=== PATIENT | male | born 1975 | race Caucasian/White ===

== ENCOUNTER 2017-03-09 05:52 | Inpatient (IN) | payer OTHER ==
[2017-03-09] VITALS (9 sets, daily range): BP systolic 90–132; BP diastolic 44–83
[~2017-03-09] VITALS: Ht 190.5 cm; Wt 99.8 kg
--- NOTE | ~2017-03-09 | CON ---
[place], [place] REPORT OF CONSULTATION NAME: WILLIAN PADILLA UNIT #: [id number] ROOM: 502 DOCTOR: ESTEFANY ZACARIAS PRIYA BIRTHDATE: [birth year] DOS: 03/09/2017 HISTORY OF PRESENT ILLNESS: This is a 41-year-old male with past medical history of diabetes mellitus with peripheral neuropathy, with history of bilateral hallux amputations, who presents to the Emergency Department with purulent drainage and cellulitis noted to the right foot. The patient states he developed an ulceration of the fourth digit last month. 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 He states that he was suppose to follow up with him today, but noticed purulent drainage come out of the medial aspect of his right foot. He states his fourth digit has been increasing in size over the course of the month. He denies being on any antibiotics at this time. He has had bilateral hallux amputations done about 5 years ago. He denies nausea, vomiting, fever or chills. He denies pain to his foot. PAST MEDICAL HISTORY: Diabetes mellitus with peripheral neuropathy, history of bilateral hallux amputations. PAST SURGICAL HISTORY: Multiple foot surgeries. SOCIAL HISTORY: Denies illicit drug use. Denies alcohol or tobacco use. MEDICATIONS: Please see MAR for current list of medications. PHYSICAL EXAMINATION: VITAL SIGNS: Temperature 98.6, pulse 102, respiratory rate 18, blood pressure 108/71. LABORATORY DATA: White count 17.1, hemoglobin 10.4, hematocrit 31.4, platelets 252. LOWER EXTREMITY PHYSICAL EXAMINATION: VASCULAR: DP and PT pulses are palpable bilateral. CFT is less than 3 seconds to remaining digits bilateral. Skin temperature is warm to warm from tibial tuberosity to digits bilateral. No hair present on digits bilateral. NEUROLOGIC: Protective sensation is diminished to digits bilateral. [place] is diminished to digits bilateral. Normal muscle tone and mass noted to bilateral lower extremities. MUSCULOSKELETAL: Bilateral hallux amputations noted. Equinus deformity noted to bilateral lower extremities. Hammertoe contractures noted to digits 2 through 5 bilateral. DERMATOLOGIC: There are multiple ulcerations noted to the right foot. There are two ulcerations on the mediolateral aspect of the fourth digits that are connected to with a Q-tip. There is about 10 mL of purulent drainage with malodor noted from the fourth digit and the fourth digit has a bulbous appearance, consistent with acute osteomyelitis, increased calor, erythema, edema noted to the right foot and it is ascending up to the mid tibia. There is also full thickness ulceration that probes to bone to the medial aspect of the right foot. There is about 10 mL of purulent drainage expressed upon compression with malodor. There is fibrotic tissue noted from the site. There is tracking noted medially across the forefoot as well from the medial [place], [place] REPORT OF CONSULTATION NAME: WILLIAN PADILLA UNIT #: [id number] ROOM: [facility] DOCTOR: ESTEFANY ZACARIAS PRIYA BIRTHDATE: [birth year] ulceration. ASSESSMENT AND PLAN: 1. Gas gangrene to the right foot. 2. Acute osteomyelitis with deep space abscess, right foot. 3. Right lower extremity cellulitis. 4. Diabetes mellitus with peripheral neuropathy. PLAN: 1. The patient is seen and examined. 2. Wound cultures obtained. 3. Antibiotics per Infectious Disease. 4. Nonweightbearing to the right lower extremity. 5. The patient to be n.p.o. at this time. 6. Plan for surgical intervention at 4:30 with incision and drainage of deep space abscess, transmetatarsal amputation and gastrocnemius recession. 7. We will continue to follow. 8. Discussed with Dr. Ingram, who agrees with the above assessment and plan. LIDIA ZACARIAS DPM CM:CONSTR:REPORT OF CONSULTATION 1025 03/09/17 1110 interface
--- NOTE | ~2017-03-09 | PR ---
[place], [place] PROGRESS NOTE NAME: WILLIAN PADILLA UNIT #: [id number] ROOM: 502 DOCTOR: ESTEFANY ZACARIAS PRIYA BIRTHDATE: [birth year] DOS: 03/16/2017 SUBJECTIVE: The patient is seen and examined at bedside. Denies nausea, vomiting, fever or chills. Denies any calf pain or pain to the right foot. OBJECTIVE: VITAL SIGNS: Temperature 99.7, pulse 82, respirations 16, blood pressure 121/76. LABORATORY DATA: White count 11.5, hemoglobin 6.3, hematocrit 20.5, platelets 398. LOWER EXTREMITIES: Dressing clean, dry and intact to the right lower extremity. There is no drainage noted to the bandages. The patient denies any calf pain upon compression. IMPRESSION: 1. Gangrene to the right foot, status post delayed primary closure of transmetatarsal amputation with ____ recession. Date of surgery, 03/16/2017, POD #1. 2. Diabetes mellitus, uncontrolled. 3. Diabetes mellitus with peripheral neuropathy. PLAN: 1. The patient is seen and examined. 2. Keep dressing clean, dry and intact. 3. Nonweightbearing to right lower extremity. 4. Recommend physical therapy evaluation. 5. Appreciate social work recs. 6. Appreciate ID recs. 7. Bone cultures and bone were sent to pathology for further evaluation. 8. We will continue to follow. 9. Okay to discharge from podiatry standpoint once medically stable.. [place], [place] PROGRESS NOTE NAME: WILLIAN PADILLA UNIT #: [id number] ROOM: [facility] DOCTOR: ESTEFANY ZACARIAS PRIYA BIRTHDATE: [birth year] LIDIA ZACARIAS DPM CM:PNTRANS [phone] LIDIA ZACARIAS DPM 03/17/172141 interface
--- NOTE | ~2017-03-09 | O ---
[place], [place] OPERATIVE NOTE NAME: WILLIAN PADILLA UNIT #: [id number] ROOM: 502 DOCTOR: GABRIELE RUBY DPM BIRTHDATE: [birth year] DOS: 03/16/2017 SURGEON: Gabriele Ruby DPM ASSISTANTS: 1. Dr. Ivon Zepeda. 2. Favian Cohen, PGY-1. PREOPERATIVE DIAGNOSES: 1. Osteomyelitis of metatarsals 1 through 5, right. 2. Open wound at the transmetatarsal site, right foot. 3. Open wound dorsomedially, measuring 2.5 x 0.5, right foot. 4. Open wound dorsolateral, measuring 1.3 x 0.5, right foot. 5. Plantar open wound that measures 4 cm x 2 cm, right foot. PROCEDURE IN DETAIL: The patient again was seen in preoperative holding area, placed in supine ____, the patient agreed. Appropriate landmarks were performed and he consented to the surgery. He was brought into the ____ table where anesthesia achieved. Once the anesthesia achieved, his right foot and leg were prepped and draped in the usual sterile fashion. At this time, appropriate timeout was performed ____ agreed ____ confirmed. PROCEDURE #1: Bone debridement: Bone debridement of the right foot, metatarsals 1 through 5. At this time using power saw, bone was resected from metatarsals 1 through 5 and at this point in time, bone was sent for aerobic, anaerobic, fungal, acid fast as well as biopsy of metatarsals 1 through 5. This was resected and a significant amount of irrigation was used for irrigation at this point in time. PROCEDURE #2: Delayed primary complex closure, dorsomedial wound: Next, attention was directed to the dorsomedial aspect of the foot where a 2.5 x 0.5 wound was measured. A full thickness sharp excisional debridement was performed. There was no ____ drainage. The wound was excised ____ all fibrous tissues were excised and removed in total. At this time, using 2-0 nylon ____ the tissues were mobilized to the midline ____ complex closure type technique using 2-0 nylon closing this primarily. PROCEDURE #3: Dorsolateral wound delayed primary closure: Attention was directed to the dorsolateral aspect of the wound that measured 1.3 x 0.5. At this time, wide excision full thickness soft tissue was taken from this site. There is no clinical sign of infection or drainage at this time. Using 2-0 nylon and 0 Prolene, complex closure was closed mobilizing the medial and lateral tissues to the midline and closing this primarily on the dorsolateral aspect of the foot. PROCEDURE #4: Attention to ____ foot: A wide excision of the plantar wound measuring 4 x 2 cm performed. All fibrous necrotic tissue was excised, removed in total. Plantar fascia was also removed in this area from the foot. At this time, after irrigation, 0 nylon and 2-0 nylon was used, undermining and mobilizing the tissue midline, completing a complete complex closure. [place], [place] OPERATIVE NOTE NAME: WILLIAN PADILLA UNIT #: [id number] ROOM: [facility] DOCTOR: GABRIELE RUBY DPM BIRTHDATE: [birth year] PROCEDURE #5: Delayed primary complex closure of the plantar wound: This was closed primarily using 2-0 nylon and 0 Prolene. PROCEDURE #6: Delayed complex closure of the transmetatarsal site: At this time, using 0 Vicryl and 2-0 nylon and 0 Prolene combination, the dog ears were repaired and a flap was ____ distally creating a complex closure of the wound primarily. Hemostasis was maintained. Soft tissues were sent for Gram stain, aerobic, anaerobic. fungal, acid fast. Prior to closure, this was irrigated and this complex closure was completed. Surgical wounds were dressed with Betadine-soaked Adaptic, 4 x 4s, Terry ____ fashion. Tolerated the procedure ____ intact. GABRIELE RUBY DPM CM:OPRECORD:OPERATIVE NOTE [id number] GABRIELE RUBY DPM 03/17/17 1631 interface
--- NOTE | ~2017-03-09 | PR ---
[place], [place] PROGRESS NOTE NAME: [id number] UNIT #: [id number] ROOM: 502 DOCTOR: ESTEFANY ZACARIAS PRIYA BIRTHDATE: [birth year] DOS: 03/12/2017 SUBJECTIVE: This is a 41-year-old male who underwent a transmetatarsal amputation and gastrocnemius recession to right lower extremity on 03/09/2017. The patient denies any nausea, vomiting, fever or chills at this time. He denies any calf pain or shortness of breath or chest pain. LABORATORY DATA: White count is 11.7, hemoglobin 7.2, hematocrit 22.4 and platelets 287. Wound cultures from March 09 demonstrate Klebsiella, Staph aureus and enterococcus. OBJECTIVE: VITAL SIGNS: Temperature 99.2, pulse 80, respirations 20, blood pressure 131/74. EXTREMITIES: Right lower extremity has a wound VAC set at 125 mmHg, with about 50 mL of sanguinous drainage. When removing the dressing, there is a plantar incision that was packed. Upon compression and probing on the hemostat, there was about 5 mL of seropurulent drainage noted from the foot. No malodor was noted. Edema present. Calor and erythema have subsided to right lower extremity. Capillary fill time to the stump is less than 5 seconds to the right lower extremity. Decreased sensation noted to the right lower extremity. The patient is able to dorsiflex and plantarflex his ankle joint appropriately. ASSESSMENT: 1. This is a 41-year-old male, status post transmetatarsal amputation with gastrocnemius recession, 03/09/2017. 2. Diabetes with peripheral neuropathy. 3. History of osteomyelitis. 4. Uncontrolled diabetic. PLAN: 1. The patient is seen and examined. 2. Dress the plantar wound with Betadine, rewrap the foot with a posterior splint. 3. Nonweightbearing to the right lower extremity. 4. At this time, white count is trending down appropriately. He is currently on vancomycin, cefepime and clindamycin. We ordered another MRI to rule out any further fluid collections in the right lower extremity. If MRI is positive, he will need to go back to surgery for another I and D. If not, we will plan for delayed primary closure later in next week. 5. Wound culture obtained. 6. We will continue to follow. [place], [place] PROGRESS NOTE NAME: WILLIAN PADILLA UNIT #: [id number] ROOM: [facility] DOCTOR: ESTEFANY ZACARIAS PRIYA BIRTHDATE: [birth year] LIDIA ZACARIAS DPM CM:PNTRANS [phone] LIDIA ZACARIAS DPM 03/12/171641 interface
--- NOTE | ~2017-03-09 | PR ---
[place], [place] PROGRESS NOTE NAME: WILLIAN PADILLA UNIT #: [id number] ROOM: 502 DOCTOR: AMANUEL DURAND,SEPTEMBER BIRTHDATE: [birth year] DOS: 03/12/2017 SUBJECTIVE: The patient is being followed for right foot abscess, osteomyelitis and cellulitis. He is status post transmetatarsal amputation. His WBCs are down to 11.7, temp max in the last 24 hours has been 99.7. He is alert and oriented. Denies any pain. No nausea, vomiting or diarrhea. No fevers or chills. No cough or shortness of breath. PHYSICAL EXAMINATION: VITAL SIGNS: Show temp 99.2, pulse 80, respirations 20, BP 131/74. LABORATORY DATA: Show WBCs 11.7, platelets 287. BUN 11, creatinine 0.93. His blood cultures from the have Gram-positive cocci in chains. Repeat blood cultures from the remain sterile. Wound cultures from the foot are growing a pansensitive Klebsiella, MRSA and Enterococcus faecalis, sensitive to ampicillin, currently on vancomycin and cefepime. Clindamycin was added yesterday for anaerobic coverage. CURRENT MEDICATIONS: Include OptiMARK, Librium, Cleocin, vancomycin, vitamin D, Lopid, Levemir, Tylenol, cefepime, Lovenox, Lipitor, Restoril, Zofran, Dulcolax, [place] and Tylenol. PHYSICAL EXAMINATION: Alert and oriented 41-year-old male, in no acute distress. HEAD, EYES, EARS, NOSE AND THROAT: Normocephalic, no thrush. LUNGS: Clear to auscultation bilaterally. Respirations even and unlabored. HEART: Regular rhythm. No murmur appreciated. ABDOMEN: Soft, nontender. EXTREMITIES: Right lower extremity dressed from just below the knee down. He does have a VAC in place, it was changed to earlier today. SKIN: Otherwise, warm and dry and free of rashes. ASSESSMENT: Right foot osteomyelitis, abscess and cellulitis, status post drainage metatarsal amputation also with Gram-positive cocci bacteremia, likely Enterococcus. PLAN: At this point, we can antibiotics to Unasyn and vancomycin, follow up on repeat blood cultures. Case discussed with Dr. Marissa Cutrona. If blood cultures remain sterile, he is likely to need a PICC line placed for long-term IV antibiotics. ALICE VITAL CNP [place], [place] PROGRESS NOTE NAME: WILLIAN PADILLA UNIT #: [id number] ROOM: [facility] DOCTOR: AMANUEL DURANDSEPTEMBER BIRTHDATE: [birth year] MARISSA VIGIL MD CM:PNTRANS [id number] ALICE VITAL CNP 03/15/17 0614 interface
--- NOTE | ~2017-03-09 | PR ---
[place], [place] PROGRESS NOTE NAME: WILLIAN PADILLA UNIT #: [id number] ROOM: 502 DOCTOR: DANNIELLE VARGAS DPM BIRTHDATE: [birth year] DOS: 03/15/2017 SUBJECTIVE: The patient was seen for followup of right foot transmet amputation. The patient is set for further debridement tomorrow by Dr. Zepeda tomorrow at 11:30. OBJECTIVE: The patient's wound VAC, posterior splint and dressing are intact with no breakthrough bleeding. Results of the venous Doppler were negative for DVT. Right ankle MRI revealed evidence of progression of infectious tenosynovitis extending along the medial flexor tendons to the master knot of Peter with proximal tenosynovitis, ulceration plantar margin of the mid foot with extensive cellulitis and diffuse myositis within the plantar musculature and inflammatory changes, no evidence of acute osteomyelitis. ASSESSMENT: Infection post-transmetatarsal amputation. PLAN: The patient's local wound care will continue. The patient has orders in the system for surgical intervention be performed, further debridement by Dr. Zepeda tomorrow. The patient had no further questions. Discussed the surgical procedure with the patient at this visit and he understands the treatment course. Discussed with the patient the importance of compliance and that he is still high risk for limb loss. The patient is set up for surgery tomorrow with Dr. Zepeda and we follow again on . DANNIELLE VARGAS DPM CM:HARRIS [phone] DANNIELLE VARGAS DPM 03/15/17 2336 interface
--- NOTE | ~2017-03-09 | PR ---
[place], [place] PROGRESS NOTE NAME: WILLIAN PADILLA UNIT #: [id number] ROOM: 502 DOCTOR: YARITZA BARRON,MARISSA White BIRTHDATE: [birth year] DOS: 03/16/2017 ADDENDUM I agree with the above plans as described. We will continue the patient's followup and adjust accordingly. MARISSA VIGIL MD CM:PNTRANS [id number] MARISSA VIGIL MD 03/17/17 0751 interface
--- NOTE | ~2017-03-09 | WRIGHTHP ---
[place], [place] PATIENT HISTORY AND PHYSICAL EXAM NAME: WILLIAN PADILLA UNIT #: [id number] ROOM: 502 DOCTOR: GABRIELE RUBY DPM BIRTHDATE: [birth year] DOS: 03/09/2017 INDICATION: The patient is seen for followup of post incision and drainage and debridement of his right lower extremity. He has had a chronic osteomyelitis infection of his right. At this point in time, the patient is set for surgery today on 03/16/2017 for debridement and delayed primary closure of wound. His wound looks pink, healthy granular. No cardinal signs of infection, drainage or odor identified. At this time, the patient is sent for [facility] for resection and more bone debridement and delayed primary closure of multiple wounds of his right lower extremity. With this in mind, a proprioception was performed. He signed consent. All questions were answered before, during and after. He understands the risk of limb loss, etc. The patient consented for surgery and set for surgery this afternoon for as described above. PHYSICAL EXAMINATION: LOWER EXTREMITY VASCULAR: He has palpable pedal pulses. He has good perfusion of his right lower extremity. NEUROLOGIC: He has complete loss of epicritic sensation secondary to diabetic neuropathy. DERMATOLOGICAL: He has an open wound to transmetatarsal amputation site. The wound is pink, healthy granular. There is no cardinal signs of infection, drainage, odor, undermining or tunneling noted in the transmetatarsal amputation site. He has a wound on dorsal, measures 2.5 x 0.5, has no evidence of cardinal signs of infection, drainage, odor, undermining or tunneling. He has a dorsal lateral wound that measures 1.3 x 0.5. It is full thickness in nature as well and does not exhibit any kind of cardinal signs of infection, drainage, undermining tunneling. He has a plantar wound that exhibits no cardinal signs of infection, drainage, undermining tunneling that measures 4 cm x 2 cm and he has a transmetatarsal site that is wide open from the lateral medial aspect of his foot. There was bone exposed the distal portion of the transmetatarsal site, orthopedic post-gangrenous and osteomyelitic changes of his right forefoot and mid foot. [place], [place] PATIENT HISTORY AND PHYSICAL EXAM NAME: WILLIAN PADILLA UNIT #: [id number] ROOM: [facility] DOCTOR: GABRIELE RUBY DPM BIRTHDATE: [birth year] GABRIELE RUBY DPM CM:HISPHYS:PATIENT HISTORY AND PHYSICAL EXAMINATION 1325 1601 GABRIELE RUBY DPM 03/16/17 1600 interface
--- NOTE | ~2017-03-09 | PR ---
[place], [place] PROGRESS NOTE NAME: WILLIAN PADILLA UNIT #: [id number] ROOM: 502 DOCTOR: ESTEFANY ZACARIAS PRIYA BIRTHDATE: [birth year] DOS: 03/13/2017 SUBJECTIVE: The patient was evaluated at bedside. He is status post transmetatarsal amputation with gastrocnemius recession on 03/09/2017. Denies nausea, vomiting, fever or chills. LABORATORY DATA: Blood work has not been completed yet. Microbiology: Current wound culture as the same from yesterday and wound culture from the plantar heel has been obtained and sent to [place] for further evaluation. OBJECTIVE: VITAL SIGNS: Temperature 99.6, pulse rate 86, respiratory rate 20, blood pressure 120/66. EXTREMITIES: Wound VAC set at 125 mmHg. There is about 50 mL of drainage. There is a plantar incision site that measures about 3 cm that tracks down to medial aspect of the right ankle. I suspect there is an abscess collection in that area. We will confirm with MRI. Neurovascular status unchanged from yesterday. ASSESSMENT: 1. Status post transmetatarsal amputation with gastrocnemius recession, right lower extremity. 2. Uncontrolled diabetes. 3. Diabetes with peripheral neuropathy. PLAN: 1. The patient is seen and examined. 2. Nonweightbearing to the right lower extremity. 3. The area was flushed with Betadine and saline solution. There is about 5 mL of seropurulent drainage noted from the medial plantar aspect of the right foot. At this time, MRI of the right ankle has been ordered to evaluate for any fluid collections. I will see if I can get this done stat. The patient will likely need to go to the operating room again for further debridement pending on MRI results. 4. Discussed with the patient importance of compliance to remain nonweightbearing to his lower extremity. 5. Antibiotics per Infectious Disease. 6. We will continue to follow. [place], [place] PROGRESS NOTE NAME: WILLIAN PADILLA UNIT #: [id number] ROOM: 502 DOCTOR: ESTEFANY ZACARIAS PRIYA BIRTHDATE: [birth year] LIDIA ZACARIAS DPM CM:PNTRANS 0640 [id number] LIDIA ZACARIAS DPM 03/13/17 2313 interface
--- NOTE | ~2017-03-09 | PR ---
[place], [place] PROGRESS NOTE [id number] UNIT #: [id number] ROOM: 502 DOCTOR: AMANUEL DURANDSEPTEMBER BIRTHDATE: [birth year] DOS: 03/16/2017 SUBJECTIVE: A 41-year-old male who is being followed for right diabetic foot infection with osteomyelitis and abscess, status post debridement transmetatarsal amputation. He is going back to surgery today for possible further I and D of the ankle and delayed primary closure of the foot. It is my understanding per Podiatry. He is alert and oriented, tolerating the antibiotics. Denies fevers, chills, nausea, vomiting or diarrhea. No rash or itch, no cough or shortness of breath. VITAL SIGNS: Show temperature 98.0, pulse 74, respirations 20, BP 142/80. LABORATORY DATA: His admitting blood cultures have had gram-positive cocci in chains that could not be identified due to poor growth, though I would suspect there were Enterococcus. His operative cultures have grown Pseudomonas, Klebsiella, MRSA and Enterococcus that was sensitive to ampicillin and vancomycin. He is currently on Zosyn and vancomycin. WBC is 9.2, platelets 394. BUN 15, creatinine 1.04. Pathology did confirm osteomyelitis. CURRENT MEDICATIONS: Include morphine, Reglan, Demerol, Zosyn, vancomycin, vitamin D, Lopid, Levemir, Tylenol, Lovenox, Lipitor, Zofran, milk of magnesia. PHYSICAL EXAMINATION: GENERAL: A 41-year-old male in no acute distress. HEAD, EYES, EARS, NOSE AND THROAT: Normocephalic. No thrush. LUNGS: Clear to auscultation bilaterally. Respirations even and unlabored. HEART: Regular rhythm. No murmur appreciated. ABDOMEN: Soft, nontender. EXTREMITIES: No edema. Right lower extremity is wrapped to the knee with vacuum placed. SKIN: Warm, dry, free of rashes. PICC in place. Dressing dry and intact. No signs of phlebitis. ASSESSMENT: Right diabetic foot infection with abscess and osteomyelitis, status post debridement and transmetatarsal amputation. PLAN: Further surgery today with possible delayed primarily closure and possible further debridement of the ankle. He is to continue the vancomycin and Zosyn. I would anticipate most likely 4-6 weeks of IV antibiotics given his wound care and antibiotics in LTAC may be good option for him, which I have discussed with the patient. Case discussed with Dr. Marissa Vigil. ALICE VITAL CNP [place], [place] PROGRESS NOTE NAME: WILLIAN PADILLA UNIT #: [id number] ROOM: 502 DOCTOR: AMANUEL DURAND BIRTHDATE: [birth year] MARISSA VIGIL MD CM:PNTRANS [id number] SEPT[place]BER AMANUEL DURAND 03/16/17 1013 interface
--- NOTE | ~2017-03-09 | PR ---
[place], [place] PROGRESS NOTE NAME: WILLIAN PADILLA UNIT #: [id number] ROOM: 502 DOCTOR: YARITZA BARRON,MARISSA White BIRTHDATE: [birth year] DOS: 03/12/2017 ADDENDUM TO A PROGRESS NOTE FOR INFECTIOUS DISEASE ON . I agree with the above plans as described. We follow the patient up clinically and adjust accordingly. MARISSA VIGIL MD CM:PNTRANS [phone] MARISSA VIGIL MD 03/15/17 0629 interface
--- NOTE | ~2017-03-09 | PR ---
[place], [place] PROGRESS NOTE NAME: WILLIAN PADILLA UNIT #: [id number] ROOM: 502 DOCTOR: JORJE ZAMORA DPM BIRTHDATE: [birth year] DOS: 03/18/2017 SUBJECTIVE: This patient is seen today for followup. He has a history of an open TMA that was subsequently closed 2 days ago. He states he is feeling well. He really has no complaints at this time. He denies fever, chills, nausea, vomiting or night sweats. OBJECTIVE: There is a bandage with a splint noted on the right lower extremity. There is no strikethrough bleeding or drainage. No pain noted to palpation in the area. His white blood cell count is down to 9.9. The patient is afebrile. ASSESSMENT: Status post surgery, right foot, doing well. PLAN: We will leave the dressing intact. No need to change the bandage at this time as he was primarily closed on Tuesday. No need for the wound VAC. ID is managing antibiotics. Okay to be discharged from Podiatry standpoint. We could follow him up as an outpatient next Tuesday in the office or sooner if there are any issues. If he is still in the hospital over the next few days, we will continue to see him while in-house. JORJE ZAMORA DPM CM:HARRIS [phone] 7 JORJE ZAMORA DPM 03/19/17136 interface
--- NOTE | ~2017-03-09 | PR ---
[place], [place] [facility]GR[id number] UN[facility] #: [id number] ROOM: 502 DOCTOR: AMANUEL DURAND,SEPTEMBER BIRTHDATE: [birth year] DOS: 03/14/2017 SUBJECTIVE: The patient is being followed for a right foot infection with osteomyelitis, abscess and cellulitis, status post debridement. The wound VAC was just applied. I did discuss with the nurse who had discussed with Dr. Wolf. There was no purulence. The foot looked better today. He has positive blood cultures for gram-positive cocci in chains. I contacted microbiology and they stated that due to poor growth, the gram-positive cocci cannot be identified. His blood cultures were polymicrobial including Enterococcus sensitive to ampicillin and vancomycin, MRSA, Klebsiella and Pseudomonas. He is on Zosyn and vancomycin, which he is tolerating without issues. Denies fevers, chills, nausea, vomiting or diarrhea. No rash or itch. No cough or shortness of breath. He has been afebrile. VITAL SIGNS: Show temperature 97.9, pulse 72, respirations 20, BP 100/59. LABORATORY DATA: WBC is 10.2, platelets 364, BUN 14, creatinine 0.92. LFTs within normal limits. CURRENT MEDICATIONS: Include Zosyn, Librium, vancomycin, vitamin D, Lopid, Levemir, Tylenol, Lovenox, Lipitor. PHYSICAL EXAMINATION: GENERAL: A 41-year-old male, in no acute distress. HEAD, EYES, EARS, NOSE AND THROAT: Normocephalic. No thrush. LUNGS: Clear to auscultation bilaterally. Respirations even and unlabored. HEART: Regular rhythm. No murmur appreciated. ABDOMEN: Soft, nondistended. EXTREMITIES: Right lower extremity with bulky dressing from knee down as well as wound VAC. SKIN: Warm, dry, free of rashes. ASSESSMENT: Right diabetic foot infection with osteomyelitis and abscess. Pathology did show acute osteomyelitis. He also has Gram-positive cocci septicemia, which is likely Enterococcus, but could not be identified by microbiology. Repeat blood cultures are sterile. PLAN: At this point, he needs to have a PICC line placed. Foot is improving per Podiatry. He could be set up for discharge. I will probably recommend a moth exterminator and acute care given is complicated wound care per discussion with nursing as well as his vancomycin and Zosyn. This was discussed with the patient. I anticipate he is going to need probably 6 weeks of IV antibiotics. ALICE VITAL CNP [place], [place] PROGRESS NOTE NAME: VALERIE,WILLIAN UNIT #: [id number] ROOM: 502 DOCTOR: AMANUEL DURAND BIRTHDATE: [birth year] MARISSA VIGIL MD CM:PNMITCHEL [phone] SEPTEMBER AMANUEL DURAND 03/15/17 0619 interface
--- NOTE | ~2017-03-09 | PR ---
[place], [place] PROGRESS NOTE NAME: WILLIAN PADILLA UNIT #: [id number] ROOM: 502 DOCTOR: AMANUEL DURANDSEPTEMBER BIRTHDATE: [birth year] DOS: 03/13/2017 SUBJECTIVE: The patient is being followed for a right foot infection with osteomyelitis and abscess. He is status post transmetatarsal amputation. His cultures are polymicrobial, they have grown Klebsiella, pseudomonas, MRSA and Enterococcus faecalis. They also had positive blood cultures with that which they have not finalized yet, but given his gram-positive cocci in chains are likely Enterococcus ____ from the . Repeat blood cultures from the remained sterile. He is alert and oriented, tolerating the antibiotics without issues. Denies any nausea, vomiting or diarrhea. No rash or itch. No cough or shortness of breath. No fevers or shaking chills. His white count has normalized. LABORATORY DATA: Vancomycin trough is 17. WBC is 8.8, platelets 314. BUN 12, creatinine 0.91. LFTs within normal limits. PHYSICAL EXAMINATION: VITAL SIGNS: Temp 98.3, pulse 91, respirations 20 and BP 100/77. GENERAL: Alert and oriented 41-year-old male in no acute distress. HEAD, EYES, EARS, NOSE AND THROAT: Normocephalic, no thrush. LUNGS: Clear to auscultation bilaterally. Respirations even and unlabored. HEART: Regular rhythm. No murmur appreciated. ABDOMEN: Soft, nondistended. EXTREMITIES: Right lower extremity with bulky dressing with VAC in place. ASSESSMENT: Right foot infection with osteomyelitis, abscess and cellulitis, status post transmetatarsal amputation. PLAN: The Unasyn will be changed over to Zosyn to cover the pseudomonas as well. Follow up on the repeat blood cultures. He is supposed to get another MRI to look for any further fluid collections in the foot as per Podiatry. We will continue the vancomycin and we can change the Unasyn to Zosyn. SEPTEMBER LADARIUS VITAL [place], [place] PROGRESS NOTE NAME: WILLIAN PADILLA UNIT #: [id number] ROOM: [facility] DOCTOR: AMANUEL DURAND,SEPTEMBER BIRTHDATE: [birth year] MARISSA VIGIL MD CM:PNTRANS [phone] SEPTEMBER AMANUEL DURAND 03/15/17 0617 interface
--- NOTE | ~2017-03-09 | O ---
[place], [place] OPERATIVE NOTE NAME: WILLIAN PADILLA UNIT #: [id number] ROOM: 502 DOCTOR: ESTEFANY ZEPEDA PRIYA BIRTHDATE: [birth year] DOS: 03/09/2017 SURGEON: Lidia Zepeda DPM PROGRAM ADVISOR: Favian Kumar DPM. PREOPERATIVE DIAGNOSES: 1. Deep space abscess, right foot. 2. Osteomyelitis, right foot. 3. Equinus contracture. POSTOPERATIVE DIAGNOSES: 1. Deep space abscess, right foot. 2. Osteomyelitis, right foot. 3. Equinus contracture. PROCEDURES PERFORMED: 1. Incision and drainage of deep space abscess. 2. Transmetatarsal amputation. 3. Gastrocnemius recession. 4. Application of wound VAC, right lower extremity. ANESTHESIA: 1. Local with IV sedation. 2. Local 20 mL of 0.5% Marcaine plain injected in ankle block fashion. ESTIMATED BLOOD LOSS: 800 mL SPECIMENS: Proximal metatarsal and soft tissue sent to microbiology and cultures as clean margins, distal soft tissue and metatarsal sent to pathology and microbiology for cultures. COMPLICATIONS: None. CONDITION: Stable. INDICATIONS: This is a 41-year-old male who presented to the ER this morning with gas gangrene and osteomyelitis of his right foot. The patient states that he had a fourth digit ulceration that started a month ago. 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 At this time, surgical intervention was deemed necessary. The risks, benefits and complications were discussed with the patient in full detail and patient expressed full understanding. All questions have been answered. No guarantees have been given or implied. The patient has been n.p.o. since midnight. History and physical examination were reviewed. MRI demonstrated osteomyelitis of the fourth digit and fourth metatarsal as well as deep space abscess in the plantar aspect of the fourth metatarsal and dorsal aspect of third metatarsal. At this time, it was decided that a transmetatarsal amputation was required to eradicate all the infection. [place], [place] OPERATIVE NOTE NAME: WILLIAN PADILLA UNIT #: [id number] ROOM: 502 DOCTOR: ESTEFANY ZEPEDA PRIYA BIRTHDATE: [birth year] DESCRIPTION OF PROCEDURE: 1. Gastrocnemius recession: At this time with the Silverskiold test an equinus deformity was noted. Next, utilizing a fresh #10 blade, a 3 cm incision was made medial to the gastroc aponeurosis. With blunt dissection, the fascial layer was identified. Next, utilizing a fresh #15 blade, the fascia was incised and the gastroc aponeurosis was identified. Utilizing a 15 blade, the gastroc was excised in full and the sural nerve remained protected. The area was flushed with copious amounts of sterile saline. Fascia was closed with 0 Vicryl and subcutaneous tissue was closed with 0 Vicryl. The skin was closed with 3-0 nylon. 2. Incision and drainage of deep space abscess: At this time, a fish mouth incision was made over the metatarsal shaft and surrounding plantar aspect of the right foot. About 50 mL of purulent drainage was noted. At this time, a wound culture was obtained and sent to microbiology for further evaluation. At this time, transmetatarsal amputation was performed. The soft tissue was released from the metatarsals. Next, using a sagittal saw from distal dorsal to plantar proximal, the metatarsals 1 through 5 were resected and the forefoot was then freed from the mid foot. Next, utilizing a rongeur, distal bone and soft tissue cultures were sent to pathology from the forefoot on the back table and another clean rongeur was used to obtain proximal soft tissue cultures and biopsy and they were sent to pathology and microbiology for further evaluation. At this time, all bleeders were cur, clamped and cauterized as necessary. The tendons were excised as appropriately. Next, copious amount of sterile saline was flushed in a pulsatile lavage fashion. The area was then inspected for any further necrotic tissue. At this time, it appeared that all the necrotic tissue was identified. Upon compression medial, lateral, dorsal and plantar, there was no further purulent drainage noted. At this time, we decided to apply wound VAC to technician's helper in further closure. Retention sutures were placed along the incision site to help maintain the plantar flap. The wound VAC was set at 125 mmHg. At this time a postop dressing was applied with Kerlix, posterior splint and Graham bandage. The patient was transferred from the operating to PACU with vitals stable and vascular status intact. He will be returned back to the floor. We will continue to follow him on the floor. We may consider taking him back for a delayed primary closure once his culture and pathology results come back. He is to be nonweightbearing. Physical Therapy has been consulted. Recommend social work consult for discharge planning. [place], [place] OPERATIVE NOTE NAME: WILLIAN PADILLA UNIT #: [id number] ROOM: [facility] DOCTOR: ESTEFANY ZEPEDA PRIYA BIRTHDATE: [birth year] LIDIA ZEPEDA DPM CM:OPRECORD:OPERATIVE NOTE 20 34 LIDIA ZEPEDA DPM 03/10/17 1543 interface
--- NOTE | ~2017-03-09 | PR ---
[place], [place] PROGRESS NOTE NAME: WILLIAN PADILLA UNIT #: [id number] ROOM: 502 DOCTOR: AMANUEL DURAND BIRTHDATE: [birth year] DOS: SUBJECTIVE: The patient is being followed for a right diabetic foot infection with osteomyelitis and abscess. He is doing well. He is status post transmetatarsal amputation. Cultures were polymicrobial including Klebsiella, pseudomonas, MRSA and Enterococcus. He did have blood cultures that were positive for gram-positive cocci in chains, I would suspect Enterococcus, but it could not be identified due to poor growth. He is tolerating the antibiotics. Denies fevers, chills, nausea, vomiting or diarrhea. No rash or itch. No cough or shortness of breath. No fevers or shaking chills. LABORATORY DATA: WBCs 10.8, platelets 368. BUN 14, creatinine 0.93. PHYSICAL EXAMINATION: GENERAL: A 41-year-old male, in no acute distress. VITAL SIGNS: Temperature 98.8, pulse 85, respirations 20, BP 134/73. HEAD, EYES, EARS, NOSE, AND THROAT: Normocephalic, no thrush. LUNGS: Clear to auscultation bilaterally. Respirations even and unlabored. HEART: Regular rhythm. No murmur appreciated. ABDOMEN: Soft, nontender. EXTREMITIES: Right foot dressing dry and intact with a VAC in place. SKIN: Warm, dry, free of rashes. PICC in place in right upper extremity. No phlebitis. ASSESSMENT: Right foot osteomyelitis, diabetic foot infection with abscess, status post transmetatarsal amputation. Path did show acute osteomyelitis. PLAN: It is my understanding that child and adolescent psychologist is planning on taking him back for possibly delayed primary closure and possibly further debridement of the ankle. We will continue the Zosyn and vancomycin. I would anticipate 4 to more likely 6 weeks of IV antibiotics. Case discussed with Dr. Marissa Vigil. SEPTEMBER LADARIUS VITAL [place], [place] PROGRESS NOTE NAME: WILLIAN PADILLA UNIT #: [id number] ROOM: 502 DOCTOR: AMANUEL DURAND BIRTHDATE: [birth year] MARISSA VIGIL MD CM:HARRIS [phone] SEPTEMBER AMANUEL DURAND 03/15/17 1648 interface
--- NOTE | ~2017-03-09 | PR ---
[place], [place] PROGRESS NOTE NAME: WILLIAN PADILLA UNIT #: [id number] ROOM: 502 DOCTOR: DANNIELLE VARGAS DPM BIRTHDATE: [birth year] DOS: 03/22/2017 SUBJECTIVE: The patient was seen for followup of postop of the right foot. The patient's compressive dressing and cast is intact and kept intact per Dr. Ingram's orders. The patient denies calf pain or pain to the leg. ASSESSMENT: Postop right foot. PLAN: The compressive cast and dressing kept intact. The patient will see Dr. Zepeda tomorrow for removal of the cast and dressing and possible discharge. I discussed the patient's case with Internal Medicine and with Dr. Zepeda. DANNIELLE VARGAS DPM CM:HARRIS [phone] DANNIELLE VARGAS DPM 03/22/172201 interface
--- NOTE | ~2017-03-09 | PR ---
[place], [place] PROGRESS NOTE NAME: WILLIAN PADILLA UNIT #: [id number] ROOM: 502 DOCTOR: YARITZA BARRON,MARISSA White BIRTHDATE: [birth year] DOS: 03/15/2017 ADDENDUM I agree with the above plans as described, continue to following the patient up clinically and adjust accordingly. MARISSA VIGIL MD CM:PNTRANS [phone] MARISSA VIGIL MD 03/17/17 0843 interface
--- NOTE | ~2017-03-09 | PR ---
[place], [place] PROGRESS NOTE NAME: WILLIAN PADILLA UNIT #: [id number] ROOM: 502 DOCTOR: YARITZA BARRON,MARISSA White BIRTHDATE: [birth year] DOS: 03/13/2017 [facility] INFECTIOUS DISEASE PROGRESS NOTE I agree with the above plans as described. We will follow the patient up clinically and adjust accordingly. MARISSA VIGIL MD CM:PNTRANS [phone] MARISSA VIGIL MD 03/15/17 0630 interface
--- NOTE | ~2017-03-09 | PR ---
[place], [place] PROGRESS NOTE NAME: WILLIAN PADILLA UNIT #: [id number] ROOM: 502 DOCTOR: JORJE ZAMORA DPM BIRTHDATE: [birth year] DOS: 03/14/2017 SUBJECTIVE: This patient is seen today for followup of right foot surgery and serious infection in the right foot. He states he is feeling better. He denies fever, chills, nausea, vomiting or night sweats, states he feels better than he did when I saw him last Tuesday. Dr. Zepeda saw him over the weekend. He had an MRI done just a little bit ago and the report is not back yet. OBJECTIVE: The patient is afebrile. The dressing and wound VAC and packing is removed. The foot actually looks clean with no purulent drainage, no malodor. There is decreased temperature noted. It was very warm to touch on Tuesday. I cannot express any drainage plantarly, medially or distally. There is minimal erythema. Overall, it looks much better than it did 3 days ago. His MRI is still pending. ASSESSMENT: Improving infection, right foot, status post transmetatarsal amputation, packed open as well as gastroc recession. PLAN: Again, removed the wound VAC and the packing. Foot looks better. We will continue with wound care as previously ordered, wound VAC to the TMA site and packing to the plantar and medial foot. Appears to be getting better at this time. We will see what the MRI shows. I discussed with the patient if the MRI showed any remain abscess, he may need to go back for surgery for debridement and further I and D. I will discuss the case with Dr. Zepeda and Dr. Pabon. JORJE ZAMORA DPM CM:PNMITCHEL [phone] JORJE ZAMORA DPM 03/21/17 0918 interface
--- NOTE | ~2017-03-09 | PR ---
[place], [place] PROGRESS NOTE NAME: WILLIAN PADILLA UNIT #: [id number] ROOM: 502 DOCTOR: YARITZA BARRON,MARISSA White BIRTHDATE: [birth year] DOS: 03/14/2017 I agree with the above plans as described. We will follow the patient clinically and make adjustments accordingly. MARISSA VIGIL MD CM:PNTRANS [phone] MARISSA VIGIL MD 03/14/17 1759 interface
--- NOTE | ~2017-03-09 | PR ---
[place], [place] PROGRESS NOTE NAME: WILLIAN PADILLA UNIT #: [id number] ROOM: 502 DOCTOR: GIOVANNA KELLER DPM BIRTHDATE: [birth year] DOS: 03/23/2017 SUBJECTIVE: The patient was seen at bedside today for followup of right transmetatarsal amputation. The patient states that he is doing well and is having no pain. The patient denies any constitutional symptoms at this time. OBJECTIVE: Postsurgical dressing noted to be intact to right lower extremity. No signs of excess drainage noted. No signs of ____ noted. No pain with calf compression is noted. Capillary fill time is brisk to the proximal leg. ASSESSMENT: Status post transmetatarsal amputation of the right lower extremity. PLAN: The patient was examined and evaluated. The patient will continue with postoperative dressing intact. The patient is awaiting discharge to home with home health care and IV antibiotics. We will await final recommendations on IV antibiotics per Infectious Disease. The patient will follow up with our office in 1 week pending discharge. GIOVANNA KELLER DPM CM:PNTRANS [phone] GIOVANNA KELLER DPM 03/28/17 1257 interface
--- NOTE | ~2017-03-09 | PR ---
[place], [place] PROGRESS NOTE [id number] #: [id number] ROOM: 502 DOCTOR: JORJE ZAMORA DPM BIRTHDATE: [birth year] DOS: 03/11/2017 SUBJECTIVE: This patient is seen status post transmetatarsal amputation, gastroc recession of his right foot and lower leg. He states it does feel better than preoperatively. He denies any fever or chills. Denies any night sweats. He states he does have some pain in the area. OBJECTIVE: Wound VAC and dressing is in place. I took down all the dressing and the wound VAC and the transmetatarsal amputation site has a retention suture in place. There is still some mild expressible drainage, but really no significant cellulitis present. Proximal to the amputation site, there is some warm, but there is no cellulitis or significant edema. The plantar flap of the amputation site had a small pocket, which was incised by about 3 cm. There was a small superficial pocket of purulence. This really did not track anywhere, but this was drained and flushed. There was some minimal expressible purulent drainage from the amputation site, but the wound is clean. There is no necrotic tissue, looks very viable. His white blood cell count has come down to 12.2. He still has a low grade temp of 99 and low 100s. There is no crepitation of the skin proximal to the amputation site. ASSESSMENT: Status post transmetatarsal amputation and gastrocnemius recession, right foot with diabetes mellitus and recent significant infections. PLAN: The VAC dressing is removed. Again, I incised the small area that has a small pocket of purulence. This was again drainage and flushed. I would recommend packing that small area, continue with the wound VAC at the amputation site. I discussed frankly with the patient that we need to keep an eye on the foot as he is at risk for more proximal amputation. Infectious Disease to manage the antibiotics. We will monitor to make sure his WBCs continued to decrease. Discussed with the patient, he may need further surgical debridement, but we will monitor closely and the patient will be followed up over the weekend for monitoring of the foot. The patient was seen with the wound care nurse. JORJE ZAMORA DPM CM:HARRIS [place] 5 JORJE ZAMORA DPM 03/12/17155 interface
--- NOTE | ~2017-03-09 | PR ---
[place], [place] PROGRESS NOTE NAME: WILLIAN PADILLA UNIT #: [id number] ROOM: 502 DOCTOR: ESTEFANY ZACARIAS PRIYA BIRTHDATE: [birth year] DOS: 03/19/2017 SUBJECTIVE: The patient seen and examined. Denies nausea, vomiting, fever or chills. Denies any calf pain. OBJECTIVE: VITAL SIGNS: Temperature 98.6, pulse 78, respiration 18, blood pressure 146/84. LABORATORY DATA: White count 7.6, hemoglobin 8.6, hematocrit 27.8, platelets 451. Microbiology: Plantar fascia demonstrates MRSA from recent culture results. Pathology pending. LOWER EXTREMITY PHYSICAL EXAMINATION: Dressing is intact to the right lower extremity. The patient denies any calf pain. ASSESSMENT: 1. Status post transmetatarsal amputation with gastrocnemius recession, right lower extremity on 03/17/2017. 2. Uncontrolled diabetes with peripheral neuropathy. PLAN: 1. The patient is seen and examined. 2. The patient pulled out the PICC line last night. He was to go to nursing facility, but there are no beds available. We will plan on discharge planning for Tuesday. 3. Appreciate ID recs. 4. Nonweightbearing to right lower extremity. 5. Okay to discharge from Podiatry standpoint once medically stable. 6. He is to follow up in our office next Tuesday upon discharge. [place], [place] PROGRESS NOTE NAME: WILLIAN PADILLA UNIT #: [id number] ROOM: [facility] DOCTOR: ESTEFANY ZACARIAS PRIYA BIRTHDATE: [birth year] LIDIA ZACARIAS DPM CM:PNTRANS [phone] LIDIA ZACARIAS DPM 03/19/17 1328 interface
[~2017-03-09 05:52] MED LIST: AMARYL2 MG PO; CIPRO100 MG PO; DOXYCYCLINE100 M3 PO; JANUVIA100 MG PO; LANTUS100 U/ML SC; LEVEMIR100 U/ML SC; LIPITOR20 MG PO; LIPITOR40 MG PO; MIRALAX POWDER17 G1 PO; NKHM; NOVOLOG1 UNIT/0.0 IV; ROCEPHIN1 GM/50 M1 IV; VANCOCIN1000 MG/25 IV; VICODIN 5/500 505 MG PO
[2017-03-09 06:26] LABS: BASO % 0.2 % (0.0-1.0); EOS # 0.2 10*3/uL (0.0-0.4); EOS % 1.1 % (1.0-4.0); HEMATOCRIT 31.9 % (42.0-52.0); HEMOGLOBIN 10.4 g/dl (14.0-18.0); LYMPH # 0.8 10*3/uL (1.3-4.4); LYMPH % 4.7 % (27.0-41.0); MEAN CELL VOLUME 91.4 fl (80.0-94.0); MEAN CORPUSCULAR HGB 29.8 pg (27.0-31.0); MEAN CORPUSCULAR HGB CONC 32.6 g/dl (33.0-37.0); MEAN PLATELET VOLUME 9.5 fl (9.6-12.3); MONO # 1.2 10*3/uL (0.1-1.0); MONO % 7.1 % (3.0-9.0); NEUT # 14.7 10*3/uL (2.3-7.9); PLATELET COUNT AUTOMATED 252 10*3/uL (130-400); RED BLOOD COUNT 3.49 10*6/uL (4.50-5.90); RED CELL DISTRI WIDTH 12.1 % (0-14.5); WHITE BLOOD COUNT 17.1 10*3/uL (4.8-10.8)
--- NOTE | 2017-03-09 06:29 | NUR ---
WOUND ON RIGHT FOOT WAS REDRESSED
[2017-03-09 06:37] LABS: ACT PARTIAL THROMBO TIME 25.3 SECONDS (20.8-31.5)
[2017-03-09 06:42] LABS: ALBUMIN 2.1 gm/dl (3.1-4.5); ALKALINE PHOSPHATASE 85 U/L (45-117); BUN 23 mg/dl (7-24); CHLORIDE 93 mmol/L (98-107); CPK 22 U/L (39-308); CREATININE 1.44 mg/dL (0.70-1.30); MAGNESIUM 2.1 mg/dL (1.5-2.1); POTASSIUM 4.6 mmol/L (3.5-5.1); SGOT/AST 11 IU/L (3-35); SGPT/ALT 10 U/L (12-78); SODIUM 129 mmol/L (136-145); TOTAL PROTEIN 7.2 gm/dL (6.4-8.2)
[2017-03-09 06:47] LABS: TROPONIN I < 0.015 ng/ml (<0.045)
--- NOTE | 2017-03-09 07:24 | NUR ---
PT HAS NO COMPLAINTS OF DISCOMFORT. IV ASSESSED AND RESTARTED. PT ON PHONE WITH FAMILY
[2017-03-09] MEDS ORDERED: LOPID600 M1 PO (10:23)
[2017-03-09] MEDS ORDERED: CEFADROXIL500 M1 PO (10:25)
--- NOTE | 2017-03-09 10:25 | NUR ---
home meds verified with home pharmacy
--- NOTE | 2017-03-09 10:30 | NUR ---
DR ZACARIAS WAS HERE TO SEE THE PATIENT FROM PODIATRY
--- NOTE | 2017-03-09 10:31 | NUR ---
NOTIFIED DR PERRY THAT MED REQ WAS COMPLETED
--- NOTE | 2017-03-09 11:24 | NUR ---
CALLED CONSULT TO DR OLSON'S OFFICE. I SPOKE WITH HIMANSHU
--- NOTE | 2017-03-09 19:27 | NUR ---
1659 IMODIUM 2MG GIVEN FOR AN DIARHEA. UPON REASSESSMENT APPROXIMATELY 30 MIN LATER PT STATES IT IS EFFECTIVE IN RELIEVING SYMPTOMS
[2017-03-09 21:33] LABS: BASO % 0.2 % (0.0-1.0); EOS # 0.3 10*3/uL (0.0-0.4); EOS % 1.7 % (1.0-4.0); HEMATOCRIT 28.8 % (42.0-52.0); HEMOGLOBIN 9.1 g/dl (14.0-18.0); LYMPH # 1.3 10*3/uL (1.3-4.4); LYMPH % 7.3 % (27.0-41.0); MEAN CELL VOLUME 94.1 fl (80.0-94.0); MEAN CORPUSCULAR HGB 29.7 pg (27.0-31.0); MEAN CORPUSCULAR HGB CONC 31.6 g/dl (33.0-37.0); MEAN PLATELET VOLUME 9.6 fl (9.6-12.3); MONO # 1.4 10*3/uL (0.1-1.0); NEUT # 14.2 10*3/uL (2.3-7.9); NEUT % 81.9 % (47.0-73.0); PLATELET COUNT AUTOMATED 255 10*3/uL (130-400); RED BLOOD COUNT 3.06 10*6/uL (4.50-5.90); RED CELL DISTRI WIDTH 12.1 % (0-14.5); WHITE BLOOD COUNT 17.3 10*3/uL (4.8-10.8)
[2017-03-10] VITALS: BP 95/43
--- NOTE | 2017-03-10 00:49 | NUR ---
24 HR chart check completed.
[2017-03-10 02:43] LABS: BILIRUBIN NEGATIVE (NEGATIVE); BLOOD 2+ (NEGATIVE); CLARITY CLOUDY (CLEAR); COLOR YELLOW (YELLOW); GLUCOSE TRACE (NEGATIVE); KETONE TRACE (NEGATIVE); LEUKO ESTERASE NEGATIVE (NEGATIVE); NITRITE NEGATIVE (NEGATIVE); SPECIFIC GRAVITY 1.025 (1.005-1.030); UROBILINOGEN 0.2 E.U./dl (0.2-1.0)
[2017-03-10 02:50] LABS: BACTERIA 1+
--- NOTE | 2017-03-10 03:38 | NUR ---
Medicated with Tylenol po prn for elevated temperature. Will monitor effectiveness. Call light within reach.
[2017-03-10 04:00] VITALS: BP 100/57
[2017-03-10 07:16] LABS: BASO % 0.2 % (0.0-1.0); EOS # 0.3 10*3/uL (0.0-0.4); EOS % 1.8 % (1.0-4.0); HEMATOCRIT 23.8 % (42.0-52.0); HEMOGLOBIN 7.7 g/dl (14.0-18.0); LYMPH # 1.1 10*3/uL (1.3-4.4); LYMPH % 7.6 % (27.0-41.0); MEAN CELL VOLUME 94.1 fl (80.0-94.0); MEAN CORPUSCULAR HGB 30.4 pg (27.0-31.0); MEAN CORPUSCULAR HGB CONC 32.4 g/dl (33.0-37.0); MEAN PLATELET VOLUME 9.6 fl (9.6-12.3); MONO % 6.7 % (3.0-9.0); NEUT # 12.3 10*3/uL (2.3-7.9); NEUT % 82.8 % (47.0-73.0); PLATELET COUNT AUTOMATED 246 10*3/uL (130-400); RED BLOOD COUNT 2.53 10*6/uL (4.50-5.90); RED CELL DISTRI WIDTH 12.2 % (0-14.5); WHITE BLOOD COUNT 14.9 10*3/uL (4.8-10.8)
[2017-03-10 07:33] LABS: ACT PARTIAL THROMBO TIME 25.5 SECONDS (20.8-31.5); INTERNATIONAL NORM RATIO 1.1 (2.0-3.5)
[2017-03-10 07:34] LABS: ALBUMIN 1.5 gm/dl (3.1-4.5); ALKALINE PHOSPHATASE 64 U/L (45-117); BUN 25 mg/dl (7-24); CHLORIDE 102 mmol/L (98-107); CREATININE 1.64 mg/dL (0.70-1.30); HDL CHOLESTEROL 9 mg/dl (40-60); POTASSIUM 3.7 mmol/L (3.5-5.1); SGOT/AST 12 IU/L (3-35); SGPT/ALT 10 U/L (12-78); SODIUM 137 mmol/L (136-145); TRIGLYCERIDES 178 mg/dl (<150); VLDL CHOLESTEROL 36 mg/dL (6-40)
[2017-03-10 07:52] LABS: CHOLESTEROL < 50 mg/dL (<200); LDL CHOLESTEROL 5 mg/dL (9-159)
[2017-03-10 08:00] VITALS: BP 102/62
--- NOTE | 2017-03-10 08:14 | NUR ---
RESTING COMFORTABLY, HOB ELEVATED, EASY RESPERS WITH SKIN WARM AND DRY. RT FOOT ELEVATED ONTO PILLOW. DRESSING INTACT WITH MODERATE AMOUNT OF OLD DRAINAGE NOTED. UNABLE TO ASSESS PEDAL PULSE D/T DRESSING, PALPABLE POPLITEAL PULSE ON RT. LEG, PALPABLE PULSES LEFT FOOT AND LEG. CALL LIGHT SYSTEM REINFORCED FOR ASSISTANCE, SEE SHIFT ASSESSMENT.
--- NOTE | 2017-03-10 08:40 | NUR ---
DR. CHAO NOTIFIED OF BLOOD AND WOUND CULTURE RESULTS.
--- NOTE | 2017-03-10 09:12 | NUR ---
PHYSICAL THERAPY PAtient requests no PT this am. PAtient extensively educated on NWB R LE. Will attempt at a later date. Thank you for this referral. Edna Arriola,PT
[2017-03-10 12:00] VITALS: BP 117/66
--- NOTE | 2017-03-10 12:35 | NUR ---
Nutritional Support Services Note: Discussing with pt 1800cal diabetic diet. Diet copy given to pt. He has been counseled in the past. Has been a diabetic for a lot of years. He tends to snack all day on high fat items. Discussed the infection in his right foot and healing. Encouraged healthy eating with protein at every meal and HS snack. He does his own meals, and relies on convenient quick foods. Discussed his high triglyceride level. Encouraged better compliance and follow up as needed. Vinita Terrazas
--- NOTE | 2017-03-10 14:05 | NUR ---
DR. CHAO CONTACTED FOR DROP IN PT. HEMOGLOBIN, NO NEW ORDERS.
--- NOTE | 2017-03-10 14:26 | NUR ---
SPOKE TO DR ZACARIAS'S OFFICE STAFF REGARDING WOUND CARE FOR THIS PT. WILL AWAIT CALL BACK.
--- NOTE | 2017-03-10 14:46 | NUR ---
SPOKE TO DR ZACARIAS REGARDING ORDERS FOR WOUND VAC WELL DRSTAMMY CHANGE ORDERS. PER DR ZACARIAS, DO NOT CHANGE DRESSING. INFORMED OF OLD BLOODY DRAINAGE AT HEEL OF FOOT & FACT THAT AREA IS MARKED & TIMED TODAY. THIS RN INQUIRED WHETHER DR HAD SEEN MRI REPORTS, DR STATES SHE HAD IN FACT SEEN MRI REPORT YESTERDAY. STATES SHE WILL NOT BE COMING IN TODAY.
[2017-03-10 16:00] VITALS: BP 112/63
--- NOTE | 2017-03-10 16:05 | NUR ---
DR OLSON IN TO SEE PT, INFORMED THAT PT HAS WOUND VAC & NO DRSNG CHANGE ORDERS HAVE BEEN RECEIVED WELL OLD MEASURED DRAINAGE FROM RT FOOT. DR OLSON STATES SHE HAS SEEN MRI RESULTS WELL.
[2017-03-10 20:00] VITALS: BP 121/67
--- NOTE | 2017-03-10 20:00 | NUR ---
PT. VISITING WITH FAMILY/FRIENDS WITH RT. LEG ELEVATED ON PILLOW WELL HOB ELEVATED. RESPIRATIONS ARE EASY AND REGULAR, NO DISTRESS NOTED AT THE TIME OF ASSESSMENT. RT. FOOT POST OP, WITH OLD DRAINAGE, PERIMITER MARKED WITH MARKER TO MONITOR, CALL LIGHT SYSTEM REINFORCED, SEE SHIFT ASSESSMENT.
--- NOTE | 2017-03-10 20:28 | NUR ---
PRN TYLENOL 650 GIVEN FOR A TEMPERATURE OF 101.1. COLD WASHCLOTHS ALSO PLACED AXILLARY AND IN THE GROIN AREA TO HELP ALEVIATE FEVER. WILL CONTINUE TO MONITOR.
[2017-03-11] VITALS: BP 116/73
--- NOTE | 2017-03-11 02:23 | NUR ---
PATIENT RESTING IN BED WITH EYES OPEN. TEMP 99.0 AT THIS TIME. DENIES COMPLAINTS OF PAIN OR DISCOMFORT. WILL CONTINUE TO MONITOR. CALL LIGHT IN REACH.
[2017-03-11 06:29] LABS: BASO % 0.3 % (0.0-1.0); EOS # 0.3 10*3/uL (0.0-0.4); EOS % 2.8 % (1.0-4.0); HEMATOCRIT 23.4 % (42.0-52.0); HEMOGLOBIN 7.5 g/dl (14.0-18.0); LYMPH % 8.1 % (27.0-41.0); MEAN CELL VOLUME 94.4 fl (80.0-94.0); MEAN CORPUSCULAR HGB 30.2 pg (27.0-31.0); MEAN CORPUSCULAR HGB CONC 32.1 g/dl (33.0-37.0); MEAN PLATELET VOLUME 9.6 fl (9.6-12.3); MONO # 0.8 10*3/uL (0.1-1.0); MONO % 6.8 % (3.0-9.0); NEUT # 9.9 10*3/uL (2.3-7.9); NEUT % 80.9 % (47.0-73.0); PLATELET COUNT AUTOMATED 264 10*3/uL (130-400); RED BLOOD COUNT 2.48 10*6/uL (4.50-5.90); RED CELL DISTRI WIDTH 12.4 % (0-14.5); WHITE BLOOD COUNT 12.2 10*3/uL (4.8-10.8)
[2017-03-11 06:59] LABS: BUN 16 mg/dl (7-24); CHLORIDE 107 mmol/L (98-107); CREATININE 0.99 mg/dL (0.70-1.30); POTASSIUM 3.1 mmol/L (3.5-5.1); SODIUM 140 mmol/L (136-145)
[2017-03-11 08:00] VITALS: BP 132/72
--- NOTE | 2017-03-11 09:20 | NUR ---
Contract Administrative Assistant in to talk to patient. Patient states lives at with Home with his uncle and "a girl named Destinee". There are 14, but has a stair lift steps in the home. Physician: hair [facility]acy: [facility] health services: not at this time Patient's level of ADLs: MODERATE ASSIST Patient has working utilities: yes DME: crutches Follow-up physician's appointment after d/c: self Does patient want to access PORTAL?: no Discharge plan: At this point in time, if patient is to be discharged to home with [facility] [employer] [facility] IV atb, patient stated he has done this in the past and would be ok doing them at home again instead of going to a nursing facility. If this is the discharge plan, he chose [facility] for the agency. . LAVON ROBERTSON
--- NOTE | 2017-03-11 10:33 | NUR ---
Unable to view wound since orders from podiatry states don't removed wound vac and no dressing change orders for the top dressing that is over top of the wound vac. Top dressing has bloody drainage noted to heel.
[2017-03-11 12:00] VITALS: BP 106/56
--- NOTE | 2017-03-11 13:00 | NUR ---
This nurse was asked by Dr. Gaspar to assist with dressing change. Location of the wound: right foot distal aspect Type of wound: surgical Thickness: Full Size: 15.5cm x 3.0cm x 5.4cm Tunneling: none Undermining: none Sinus Tract: none Presence of Exudate: serosanguineous Amount: Moderate Color: Red Odor: None Periwound Skin Appearance: Macerated Wound edges: approximated Pain (associated with wound): none at time of dressing change How does patient state this happened? pt had surgery several bones exposed. Location of the wound: plantar aspect of right foot Type of wound: surgical Thickness: Full Size: 3.0cm x 0.5cm x 1.5cm Tunneling: none Undermining: none Sinus Tract: none Presence of Exudate: serosanguineous Amount: Moderate Color: Red Odor: None Periwound Skin Appearance: Normal Wound edges: approximated Pain (associated with wound): none at time of assessment How does patient state this happened? pt had I&D at bedside Patient tolerate dressing change without diffculty didn't want any pain medication at this time. stated to reapply the wound vac and don't remove until podiatry see patient over the weekend.
--- NOTE | 2017-03-11 13:00 | NUR ---
DR ZAMORA IN TO SEE PT, DRSNG REMOVED & SITE VIEWED BY PHYSICIAN. WOUND CARE NURSE ALEJANDRO TEMPLETON IN TO ASSIST WITH DRSNG & WOUND VAC CHANGE. PT TOLERATED WELL, DECLINES NEED FOR PRN PAIN MEDICATIONS.
--- NOTE | 2017-03-11 13:03 | NUR ---
PHYSICAL THERAPY Patient with fever earlier this date and wound vac. Will attempt at a later date. Edna Arriola,PT
--- NOTE | 2017-03-11 14:36 | NUR ---
Spoke with Dr Brody regarding consult will see patient on tuesday.
[2017-03-11 16:00] VITALS: BP 131/76
[2017-03-11 20:00] VITALS: BP 125/77
[2017-03-12] VITALS: BP 112/51
--- NOTE | 2017-03-12 05:45 | NUR ---
PATIENT IV INFILTRATED. IV REMOVED FROM RIGHT ARM. 22G INSERTED INTO LEFT FOREARM WITHOUT DIFFICULTY. GOOD BLOOD RETURN. PATIENT TOLERATED WELL. IV FLUIDS RESTARTED AT THIS TIME. WILL CONTINUE TO MONITOR.
[2017-03-12 06:41] LABS: BASO % 0.2 % (0.0-1.0); EOS # 0.4 10*3/uL (0.0-0.4); EOS % 3.6 % (1.0-4.0); HEMATOCRIT 22.4 % (42.0-52.0); HEMOGLOBIN 7.2 g/dl (14.0-18.0); LYMPH # 1.6 10*3/uL (1.3-4.4); LYMPH % 13.2 % (27.0-41.0); MEAN CELL VOLUME 93.3 fl (80.0-94.0); MEAN CORPUSCULAR HGB CONC 32.1 g/dl (33.0-37.0); MEAN PLATELET VOLUME 9.6 fl (9.6-12.3); MONO # 1.1 10*3/uL (0.1-1.0); MONO % 9.6 % (3.0-9.0); NEUT # 8.5 10*3/uL (2.3-7.9); NEUT % 72.2 % (47.0-73.0); PLATELET COUNT AUTOMATED 287 10*3/uL (130-400); RED CELL DISTRI WIDTH 12.5 % (0-14.5); WHITE BLOOD COUNT 11.7 10*3/uL (4.8-10.8)
[2017-03-12 07:06] LABS: BUN 11 mg/dl (7-24); CHLORIDE 106 mmol/L (98-107); CREATININE 0.93 mg/dL (0.70-1.30); POTASSIUM 3.7 mmol/L (3.5-5.1); SODIUM 139 mmol/L (136-145)
[2017-03-12 08:33] VITALS: BP 131/74
[2017-03-12 12:00] VITALS: BP 123/64
--- NOTE | 2017-03-12 12:17 | NUR ---
DR. BOYD IN TO SEE PATIENT RE: PLAN OF CARE AND IS PLANNING FOR ADDITIONAL INCISION AND DEBRIDEMENT OF THE RIGHT FOOT ON TUESDAY D/T ABSCESS.
[2017-03-12 16:00] VITALS: BP 123/64
[2017-03-12 20:00] VITALS: BP 110/62
[2017-03-13] VITALS: BP 120/66
--- NOTE | 2017-03-13 02:33 | NUR ---
PATIENT MEDICATED WITH NORCO AT 2146 FOR COMPLAINTS OF A HEADACHE WITH EFFECTIVE RESULTS NOTED. TEMP AT 0000 WAS 99.6. RESTING QUIETLY IN BED WITH EYES CLOSED AT THIS TIME. NO SIGNS OR SYMPTOMS OF DISTRESS NOTED. WILL CONTINUE TO MONITOR. CALL LIGHT IN REACH.
--- NOTE | 2017-03-13 05:50 | NUR ---
MEDICATED WITH MORPHINE AT 0540 FOR COMPLAINTS OF HEADACHE. WILL MONITOR FOR EFFECTIVENESS. CALL LIGHT IN REACH.
[2017-03-13 07:00] LABS: BASO % 0.3 % (0.0-1.0); EOS # 0.4 10*3/uL (0.0-0.4); HEMATOCRIT 23.1 % (42.0-52.0); HEMOGLOBIN 7.3 g/dl (14.0-18.0); LYMPH # 1.3 10*3/uL (1.3-4.4); LYMPH % 14.2 % (27.0-41.0); MEAN CORPUSCULAR HGB 29.1 pg (27.0-31.0); MEAN CORPUSCULAR HGB CONC 31.6 g/dl (33.0-37.0); MEAN PLATELET VOLUME 9.7 fl (9.6-12.3); MONO # 0.7 10*3/uL (0.1-1.0); MONO % 8.4 % (3.0-9.0); NEUT # 6.3 10*3/uL (2.3-7.9); NEUT % 71.4 % (47.0-73.0); PLATELET COUNT AUTOMATED 314 10*3/uL (130-400); RED BLOOD COUNT 2.51 10*6/uL (4.50-5.90); RED CELL DISTRI WIDTH 12.5 % (0-14.5); WHITE BLOOD COUNT 8.8 10*3/uL (4.8-10.8)
[2017-03-13 07:28] LABS: ALBUMIN 1.5 gm/dl (3.1-4.5); BUN 12 mg/dl (7-24); CHLORIDE 103 mmol/L (98-107); CREATININE 0.91 mg/dL (0.70-1.30); POTASSIUM 3.8 mmol/L (3.5-5.1); SGOT/AST 16 IU/L (3-35); SGPT/ALT 12 U/L (12-78); SODIUM 138 mmol/L (136-145); TOTAL PROTEIN 6.2 gm/dL (6.4-8.2)
[2017-03-13 07:29] LABS: ALKALINE PHOSPHATASE 59 U/L (45-117)
[2017-03-13 08:04] VITALS: BP 142/89
[2017-03-13 13:02] VITALS: BP 100/77
[2017-03-13 16:00] VITALS: BP 141/75
[2017-03-13 20:00] VITALS: BP 123/85
--- NOTE | 2017-03-13 21:42 | NUR ---
PT C/O PAIN IN BLE, REQUESTED AND ADMINSITERED NORCO PO PRN PER ORDERS WILL MONOITOR EFFECTS
[2017-03-14] VITALS: BP 134/75
--- NOTE | 2017-03-14 04:15 | NUR ---
PT. MEDICATED WITH PRN NORCO FOR A HEADACHE RATING PAIN AN 8/10. WILL CONTINUE TO MONITOR.
--- NOTE | 2017-03-14 04:45 | NUR ---
PRN NORCO EFFECTIVE, PT. RESTING COMFORTABLY RESPIRATIONS ARE EASY AND REGULAR WITH NO DISTRESS. WILL CONTINUE TO MONITOR.
[2017-03-14 06:24] LABS: BASO % 0.4 % (0.0-1.0); EOS # 0.4 10*3/uL (0.0-0.4); HEMATOCRIT 24.1 % (42.0-52.0); HEMOGLOBIN 7.7 g/dl (14.0-18.0); LYMPH # 1.5 10*3/uL (1.3-4.4); LYMPH % 14.3 % (27.0-41.0); MEAN CELL VOLUME 93.8 fl (80.0-94.0); MEAN PLATELET VOLUME 9.3 fl (9.6-12.3); MONO # 0.8 10*3/uL (0.1-1.0); MONO % 7.5 % (3.0-9.0); NEUT # 7.3 10*3/uL (2.3-7.9); NEUT % 71.6 % (47.0-73.0); NUCLEATED RED BLOOD CELL 0.2 % (0.0-0.0); PLATELET COUNT AUTOMATED 364 10*3/uL (130-400); RED BLOOD COUNT 2.57 10*6/uL (4.50-5.90); RED CELL DISTRI WIDTH 12.6 % (0-14.5); WHITE BLOOD COUNT 10.2 10*3/uL (4.8-10.8)
[2017-03-14 07:01] LABS: ALBUMIN 1.6 gm/dl (3.1-4.5); ALKALINE PHOSPHATASE 63 U/L (45-117); BUN 14 mg/dl (7-24); CHLORIDE 101 mmol/L (98-107); CREATININE 0.92 mg/dL (0.70-1.30); POTASSIUM 3.8 mmol/L (3.5-5.1); SGOT/AST 18 IU/L (3-35); SGPT/ALT 13 U/L (12-78); SODIUM 136 mmol/L (136-145); TOTAL PROTEIN 6.8 gm/dL (6.4-8.2)
[2017-03-14 08:00] VITALS: BP 120/78
--- NOTE | 2017-03-14 08:30 | NUR ---
Patient resting quietly with no c/o discomfort. Respirations easy and regular. Vital signs stable. No overt distress. Wound vac intact and patent. No leaks detected. Will monitor MITZI GARCIA
--- NOTE | 2017-03-14 11:30 | NUR ---
Dr Barone in to see pt. wound vac removed.
[2017-03-14 12:00] VITALS: BP 100/59
--- NOTE | 2017-03-14 12:22 | NUR ---
PHYSICAL THERAPY Pnt using the BSC on arrival for PT eval. Will attempt again later. Hanna Rai, PT
--- NOTE | 2017-03-14 12:59 | NUR ---
PHYSICAL THERAPY PT eval to be held at this time per nursing d/t wound care needs. Will attempt again at a later date. Hanna Rai, PT
--- NOTE | 2017-03-14 13:00 | NUR ---
Wound vac reapplied. No leaks detected. Pt tolerated well. Will monitor
--- NOTE | 2017-03-14 14:20 | NUR ---
Pt requested and was medicated with Tylenol for c/o headache. will monitor
--- NOTE | 2017-03-14 15:30 | NUR ---
Medication effective per pt.
[2017-03-14 16:00] VITALS: BP 105/62
[2017-03-14 20:00] VITALS: BP 108/71
--- NOTE | 2017-03-14 21:00 | NUR ---
PATIENT RESTING QUIETLY IN BED. NO VOICED COMPLAINTS AT THIS TIME. RESPIRATIONS EASY/REG. CALL LIGHT IS IN REACH. WILL MONITOR.
[2017-03-15] VITALS: BP 124/74
--- NOTE | 2017-03-15 02:17 | NUR ---
PATIENT MEDICATED WITH PRN NORCO ORDERED FOR HEADACHE RATED A 12/10.
--- NOTE | 2017-03-15 02:37 | NUR ---
SLEEPING. RESPIRATIONS EASY/REG. ANTIBIOTIC RUNNNIG ORDERED. CALL LIGHT IN REACH. WILL MONITOR.
--- NOTE | 2017-03-15 03:15 | NUR ---
PATIENT STATES EARLIER NORCO WAS EFFECTIVE IN REDUCING HIS HEADACHE PAIN.
[2017-03-15 06:37] LABS: BUN 14 mg/dl (7-24); CHLORIDE 102 mmol/L (98-107); CREATININE 0.93 mg/dL (0.70-1.30); POTASSIUM 4.3 mmol/L (3.5-5.1); SODIUM 136 mmol/L (136-145)
[2017-03-15 06:40] LABS: BASO % 0.4 % (0.0-1.0); EOS # 0.5 10*3/uL (0.0-0.4); EOS % 4.7 % (1.0-4.0); HEMATOCRIT 23.4 % (42.0-52.0); HEMOGLOBIN 7.3 g/dl (14.0-18.0); LYMPH # 1.6 10*3/uL (1.3-4.4); LYMPH % 14.7 % (27.0-41.0); MEAN CORPUSCULAR HGB 29.3 pg (27.0-31.0); MEAN CORPUSCULAR HGB CONC 31.2 g/dl (33.0-37.0); MEAN PLATELET VOLUME 10.1 fl (9.6-12.3); MONO # 0.7 10*3/uL (0.1-1.0); MONO % 6.1 % (3.0-9.0); NEUT # 7.8 10*3/uL (2.3-7.9); NEUT % 71.7 % (47.0-73.0); NUCLEATED RED BLOOD CELL 0.4 % (0.0-0.0); PLATELET COUNT AUTOMATED 368 10*3/uL (130-400); RED BLOOD COUNT 2.49 10*6/uL (4.50-5.90); RED CELL DISTRI WIDTH 12.6 % (0-14.5); WHITE BLOOD COUNT 10.8 10*3/uL (4.8-10.8)
--- NOTE | 2017-03-15 07:49 | NUR ---
Shift chart check completed.
--- NOTE | 2017-03-15 07:58 | NUR ---
NOTIFIED DR BECKER THAT CONSENT HAS NOT BEEN SIGNED FOR PICC LINE INSERTION. SURGERY STATED THEY CAN NOT TAKE THE PATIENT UNTIL CONSENT IS SIGNED. DR BECKER STATED HE WOULD COME UP AND TAKE CARE OF IT.
[2017-03-15 08:00] VITALS: BP 126/68
--- NOTE | 2017-03-15 08:05 | NUR ---
PHYSICAL THERAPY PAtient to go for pick line. Edna Arriola,PT
--- NOTE | 2017-03-15 10:19 | NUR ---
PHYSICAL THERAPY PAtient at surgery. Edna Arriola,PT
[2017-03-15 12:00] VITALS: BP 134/73
--- NOTE | 2017-03-15 12:17 | NUR ---
CALLED DR BECKER FOR ORDERS TO USE THE PICC LINE
--- NOTE | 2017-03-15 12:54 | NUR ---
PATIENT MEDICATED WITH PO NORCO FOR PAIN IN HIS HEAD RADIATING FROM BELOW HIS RIGHT EAR TO UP AROUND AND INTO THE TOP OF HIS HEAD RATED 8/10
--- NOTE | 2017-03-15 13:54 | NUR ---
PATIENT STATES MEDICATION EFFECTIVE
--- NOTE | 2017-03-15 14:03 | NUR ---
Contacted [facility] regarding patients insurance and authorization. Patient has a medicaid product that doesn't recognize LTACH's. [facility].
[2017-03-15 16:00] VITALS: BP 140/78
[2017-03-15 20:00] VITALS: BP 117/69
--- NOTE | 2017-03-15 20:22 | NUR ---
PATIENT RESTING IN BED WATCHING TV. NO NEEDS MADE. DENIES PAIN AT THIS TIME. BED IN LOWEST POSITION, CALL LIGHT INR EACH
[2017-03-16] VITALS (8 sets, daily range): BP systolic 100–142; BP diastolic 65–81
--- NOTE | 2017-03-16 00:03 | NUR ---
PATIENT MEDICATED WITH PRN NORCO FOR C/O PAIN IN HIS NECK RATED 9/10 ON A 0/10 PAIN SCALE
--- NOTE | 2017-03-16 01:00 | NUR ---
MEDICATION EFFECTIVE PER PATIENT
--- NOTE | 2017-03-16 02:13 | NUR ---
24 HR chart check completed.
[2017-03-16 06:34] LABS: BASO % 0.3 % (0.0-1.0); EOS # 0.4 10*3/uL (0.0-0.4); EOS % 4.5 % (1.0-4.0); HEMATOCRIT 22.2 % (42.0-52.0); LYMPH # 1.4 10*3/uL (1.3-4.4); LYMPH % 15.4 % (27.0-41.0); MEAN CELL VOLUME 94.5 fl (80.0-94.0); MEAN CORPUSCULAR HGB 29.8 pg (27.0-31.0); MEAN CORPUSCULAR HGB CONC 31.5 g/dl (33.0-37.0); MEAN PLATELET VOLUME 9.1 fl (9.6-12.3); MONO # 0.5 10*3/uL (0.1-1.0); MONO % 5.7 % (3.0-9.0); NEUT # 6.7 10*3/uL (2.3-7.9); NEUT % 72.4 % (47.0-73.0); NUCLEATED RED BLOOD CELL 0.2 % (0.0-0.0); PLATELET COUNT AUTOMATED 394 10*3/uL (130-400); RED BLOOD COUNT 2.35 10*6/uL (4.50-5.90); RED CELL DISTRI WIDTH 12.7 % (0-14.5); WHITE BLOOD COUNT 9.2 10*3/uL (4.8-10.8)
[2017-03-16 06:45] LABS: BUN 15 mg/dl (7-24); CHLORIDE 103 mmol/L (98-107); CREATININE 1.04 mg/dL (0.70-1.30); POTASSIUM 4.1 mmol/L (3.5-5.1); SODIUM 138 mmol/L (136-145)
--- NOTE | 2017-03-16 08:00 | NUR ---
Patient resting quietly with no c/o discomfort. Respirations easy and regular. Vital signs stable. No overt distress. MITZI GARCIA R
--- NOTE | 2017-03-16 11:00 | NUR ---
PT IN SURGERY.
--- NOTE | 2017-03-16 14:30 | NUR ---
PT RETURNS FROM SURGERY. DRSG DRY AND INTACT. NO WOUND VAC. CALL LIGHT IN REACH. WILL MONITOR
--- NOTE | 2017-03-16 14:39 | NUR ---
[facility]SHLEY NOTIFIED.
--- NOTE | 2017-03-16 15:22 | NUR ---
PHYSICAL THERAPY Hold PT eval today per nursing as pnt underwent an I&D and bone biopsy earlier today and had developed low BS. Will monitor and evaluate as able. Hanna Rai, PT
--- NOTE | 2017-03-16 16:22 | NUR ---
PT REQUESTED AND WAS MEDICATED WITH NORCO FOR C/O GENERALIZED PAIN. CALL LIGHT IN REACH. WILL MONITOR
--- NOTE | 2017-03-16 20:00 | NUR ---
PATIENT IS AWAKE, ALERT AND ORIENTED X3. PLEASANT AND COOPERATIVE WITH ASSESSMENT. LUNGS ARE CLEAR AND DIMINISHED THROUGHOUT LUNGFIELDS. ROOM AIR . ABDOMEN IS SOFT AND NON-TENDER UPON PALPATION, BOWEL SOUNDS ARE NORMOACTIVE X4 QUADS. UNABLE TO VISUALIZE RIGHT FOOT PATIENT HAS A THICK BULKY DRESSING DRESSING , CLEAN, DRY AND INTACT. LLE, NO EDEMA, PPP. PATIENT REQUESTED NORCO FOR C/O HEADACHE, RATES THIS 9/10 ON PAIN SCALE. NORCO GIVEN AT THIS TIME. CALL LIGHT IS IN REACH.
[2017-03-17] VITALS (8 sets, daily range): BP systolic 92–127; BP diastolic 49–76
--- NOTE | 2017-03-17 02:21 | NUR ---
PATIENT REQUESTED SOMETHING FOR PAIN FOR C/O PAIN IN HIS NECK AND BACK. RATES THIS PAIN 7/10 ON PAIN SCALE. DESCRIBES PAIN ACHY. PRN CHRIS GIVENT AT THIS TIME. CALL LIGHT IS IN REACH.
--- NOTE | 2017-03-17 03:21 | NUR ---
PATIENT RESTING IN BED WITH EYES CLOSED BILATERALLY. RESPIRATIONS ARE EASY AND REGULAR. NO S/S OF PAIN OR DISCOMFORT. NORCO EFFECTIVE AT THIS TIME. CALL LIGHT IS IN REACH.
[2017-03-17 06:25] LABS: BASO % 0.3 % (0.0-1.0); EOS # 0.5 10*3/uL (0.0-0.4); EOS % 4.1 % (1.0-4.0); HEMATOCRIT 20.5 % (42.0-52.0); HEMOGLOBIN 6.3 g/dl (14.0-18.0); LYMPH # 1.4 10*3/uL (1.3-4.4); LYMPH % 12.4 % (27.0-41.0); MEAN CELL VOLUME 95.8 fl (80.0-94.0); MEAN CORPUSCULAR HGB 29.4 pg (27.0-31.0); MEAN CORPUSCULAR HGB CONC 30.7 g/dl (33.0-37.0); MEAN PLATELET VOLUME 9.2 fl (9.6-12.3); MONO # 0.7 10*3/uL (0.1-1.0); MONO % 6.2 % (3.0-9.0); NEUT # 8.8 10*3/uL (2.3-7.9); NUCLEATED RED BLOOD CELL 0.2 % (0.0-0.0); PLATELET COUNT AUTOMATED 398 10*3/uL (130-400); RED BLOOD COUNT 2.14 10*6/uL (4.50-5.90); RED CELL DISTRI WIDTH 12.9 % (0-14.5); WHITE BLOOD COUNT 11.5 10*3/uL (4.8-10.8)
[2017-03-17 06:35] LABS: BUN 17 mg/dl (7-24); CHLORIDE 104 mmol/L (98-107); POTASSIUM 4.1 mmol/L (3.5-5.1); SODIUM 138 mmol/L (136-145)
--- NOTE | 2017-03-17 09:00 | NUR ---
case management visits with patient, discussed with him a short term [place] [facility] for rehab prior to going home and he was receptive to this, patient chose [facility], order planner will make referral to [facility], case management will follow
--- NOTE | 2017-03-17 09:45 | NUR ---
1 UNIT OF PACKED RED BLOOD CELLS STARTED. PATIENT TOLERATING WELL, NO C/O.
--- NOTE | 2017-03-17 10:28 | NUR ---
Patient referred to [facility] for IV ATB and wound care. Waiting on acceptance.
--- NOTE | 2017-03-17 10:47 | NUR ---
PHYSICAL THERAPY PAtient receiving blood at this time. Edna Arriola,PT
[2017-03-17 11:17] LABS: IRON 18 ug/dL (65-175); TOTAL IRON BINDING CAPACITY 193 ug/dl (250-450)
--- NOTE | 2017-03-17 11:42 | NUR ---
[facility] is unable to accept this patient at this time.
[2017-03-17 13:05] LABS: ACID FAST SMEAR Negative (.); ACID FAST SPEC PROCESSING Tissue Grinding (.)
--- NOTE | 2017-03-17 13:33 | NUR ---
PHYSICAL THERAPY PAtient evaluated on 5, full evaluation to follow. COntinue with PT as per plan of care with fall, NWB RIGHT LE due to recent acute amputation and wounds, wound infection, decreased balance/safety and acute debility. Will require SNF for impaired mobility. PAtient is high complexity via chart review, tests and evalatuion: [id number]. Thank you for this referral. Edna Arriola,PT
--- NOTE | 2017-03-17 13:34 | NUR ---
Called [facility] to ask about [facility] for IV atb and wound care. Unable to contact, left voicemail for return call.
[2017-03-17 13:42] LABS: BASO # 0.1 10*3/uL (0.0-0.1); BASO % 0.3 % (0.0-1.0); EOS # 0.5 10*3/uL (0.0-0.4); EOS % 3.6 % (1.0-4.0); HEMATOCRIT 25.6 % (42.0-52.0); LYMPH # 1.8 10*3/uL (1.3-4.4); LYMPH % 12.3 % (27.0-41.0); MEAN CELL VOLUME 93.1 fl (80.0-94.0); MEAN CORPUSCULAR HGB 30.5 pg (27.0-31.0); MEAN CORPUSCULAR HGB CONC 32.8 g/dl (33.0-37.0); MEAN PLATELET VOLUME 8.6 fl (9.6-12.3); MONO # 0.8 10*3/uL (0.1-1.0); MONO % 5.7 % (3.0-9.0); NEUT # 11.4 10*3/uL (2.3-7.9); NEUT % 77.3 % (47.0-73.0); NUCLEATED RED BLOOD CELL 0.1 % (0.0-0.0); PLATELET COUNT AUTOMATED 422 10*3/uL (130-400); RED BLOOD COUNT 2.75 10*6/uL (4.50-5.90); RED CELL DISTRI WIDTH 13.6 % (0-14.5); WHITE BLOOD COUNT 14.8 10*3/uL (4.8-10.8)
[2017-03-17 13:52] LABS: HEMOGLOBIN 8.4 g/dl (14.0-18.0)
--- NOTE | 2017-03-17 13:57 | NUR ---
[facility] returned call and stated they do not have a male bed available at this time
--- NOTE | 2017-03-17 16:50 | NUR ---
NORCO GIVEN PER PATIENT REQUEST FOR CHRONIC NECK PAIN RATED 8/10. WILL MONITOR
--- NOTE | 2017-03-17 16:50 | NUR ---
NORCO GIVEN FOR CHRONIC NECK/HEAD PAIN RATED 8/10. WILL MONITOR.
--- NOTE | 2017-03-17 17:30 | NUR ---
NORCO EFFECTIVE. PATIENT SATISFIED RATES PAIN 5/10.
--- NOTE | 2017-03-17 19:30 | NUR ---
PT. AWAKE, ALERT AND ORIENTED X 3 AT THIS TIME. PT. IN BED WITH CALL LIGHT WITHIN REACH, BED IN LOWEST POSITION, WHEELS LOCKED. NO COMPLAINTS OR NEEDS AT THIS TIME. SEE SHIFT ASSESSMENT.
[2017-03-18] VITALS: BP 132/72
--- NOTE | 2017-03-18 | NUR ---
sleeping. no distress noted. respirations easy. lungs diminished, clear. pulse ox 93% ra. picc maintained to right arm. call light within reach.
[2017-03-18 05:59] LABS: BASO % 0.4 % (0.0-1.0); EOS # 0.4 10*3/uL (0.0-0.4); EOS % 3.9 % (1.0-4.0); HEMATOCRIT 24.1 % (42.0-52.0); HEMOGLOBIN 7.6 g/dl (14.0-18.0); LYMPH # 1.3 10*3/uL (1.3-4.4); LYMPH % 13.2 % (27.0-41.0); MEAN CELL VOLUME 93.8 fl (80.0-94.0); MEAN CORPUSCULAR HGB 29.6 pg (27.0-31.0); MEAN CORPUSCULAR HGB CONC 31.5 g/dl (33.0-37.0); MEAN PLATELET VOLUME 8.7 fl (9.6-12.3); MONO # 0.6 10*3/uL (0.1-1.0); MONO % 6.1 % (3.0-9.0); NEUT # 7.5 10*3/uL (2.3-7.9); NEUT % 75.7 % (47.0-73.0); NUCLEATED RED BLOOD CELL 0.3 % (0.0-0.0); PLATELET COUNT AUTOMATED 420 10*3/uL (130-400); RED BLOOD COUNT 2.57 10*6/uL (4.50-5.90); RED CELL DISTRI WIDTH 13.3 % (0-14.5); WHITE BLOOD COUNT 9.9 10*3/uL (4.8-10.8)
--- NOTE | 2017-03-18 06:00 | NUR ---
slept throughout night with no distress noted. respirations easy. call light within reach. no voiced complaints this shift
[2017-03-18 06:03] LABS: BUN 16 mg/dl (7-24); CHLORIDE 103 mmol/L (98-107); CREATININE 1.03 mg/dL (0.70-1.30); POTASSIUM 3.9 mmol/L (3.5-5.1); SODIUM 137 mmol/L (136-145)
[2017-03-18 06:06] LABS: VANCOMYCIN TROUGH 17.2 ug/mL (10-20)
[2017-03-18 08:00] VITALS: BP 133/81
--- NOTE | 2017-03-18 09:00 | NUR ---
case management visits with patient, discussed with him no nursing facilities having a bed for him to transfer. patient stated he would just go home, discussed with him VNA and he stated he had [facility] home health in the past and would like them again, habitat conservation planner will send an order to [facility] for when patient is medically stable for discharge
[2017-03-18 12:00] VITALS: BP 139/82
--- NOTE | 2017-03-18 12:16 | NUR ---
PHYSICAL THERAPY Third time in to see Jun for his therapy session. Mask, glove, and gown before treatment due to infection in wounds. Transfer supine/sit, sitting balance supervision X 1. Sit/stand and up on standard walker for standing balance and NWB right LE with verbal cues for NWB. Then pivit and building engineer front of his bedside chair MOD A X 1, for balance and cueing for safety, stand to tolerance then sit up in bedside chair. Pt has IV, given call light and phone. WESLEY WOOD DIRECTOR PROFESSIONAL SERVICES.
--- NOTE | 2017-03-18 12:22 | NUR ---
Patient does not have wound vac in place orders are still under CPOE. No other dressing change orders noted. In the operative report it did state what dressing supplies were applied after surgery on 03/16/17. Nurse Keysha stated she will clarify orders with Dr. Gaspar when he rounds today.
[2017-03-18] MEDS ORDERED: CIPRO500 MG PO (15:42)
[2017-03-18] MEDS ORDERED: TEFLARO600 MG IV (15:42)
[2017-03-18 16:00] VITALS: BP 140/77
[2017-03-18 20:00] VITALS: BP 137/86
--- NOTE | 2017-03-18 20:00 | NUR ---
RESTING IN BED WATCHING TV. NO DISTRESS NOTED. RESPIRATIONS EASY. VSS. LUNGS DIMINISHED, CLEAR. PULSE OX 92% RA. BULKY DRESSING NOTED TO RLE. CALL LIGHT WITHIN REACH. NO VOICED COMPLAINTS
--- NOTE | 2017-03-18 21:05 | NUR ---
REQUESTED AND RECEIVED TYLENOL PER PRN ORDER FOR COMPLAINTS OF HEADACHE RATING AN 8. CALL LIGHT WITHIN REACH. WILL MONITOR FOR EFFECTIVENESS
--- NOTE | 2017-03-18 23:00 | NUR ---
EARLIER MED EFFECTIVE. SLEEPING. RESPIRATIONS EASY. CALL LIGHT WITHIN REACH
[2017-03-19] VITALS: BP 110/63
--- NOTE | 2017-03-19 00:30 | NUR ---
SLEEPING. RESPIRATIONS EASY. VSS. CALL LIGHT WITHIN REACH.
--- NOTE | 2017-03-19 05:30 | NUR ---
IV ZOSYN HUNG AT 0458. ENTERED ROOM D/T IV BEEPING. PATIENT HAS RIGHT ARM PICC PULLED OUT OF ARM AND LAYING ON BED. 2X2 APPLIED TO SITE. NEW IV SITE OBTAINED AND IV ANTIBIOTICS CONTINUED
[2017-03-19 06:14] LABS: BASO % 0.5 % (0.0-1.0); EOS # 0.5 10*3/uL (0.0-0.4); EOS % 6.4 % (1.0-4.0); HEMATOCRIT 27.8 % (42.0-52.0); HEMOGLOBIN 8.6 g/dl (14.0-18.0); LYMPH # 1.5 10*3/uL (1.3-4.4); LYMPH % 20.4 % (27.0-41.0); MEAN CELL VOLUME 95.9 fl (80.0-94.0); MEAN CORPUSCULAR HGB 29.7 pg (27.0-31.0); MEAN CORPUSCULAR HGB CONC 30.9 g/dl (33.0-37.0); MEAN PLATELET VOLUME 8.9 fl (9.6-12.3); MONO # 0.5 10*3/uL (0.1-1.0); MONO % 6.4 % (3.0-9.0); NEUT % 65.5 % (47.0-73.0); PLATELET COUNT AUTOMATED 451 10*3/uL (130-400); RED CELL DISTRI WIDTH 13.1 % (0-14.5); WHITE BLOOD COUNT 7.6 10*3/uL (4.8-10.8)
--- NOTE | 2017-03-19 06:15 | NUR ---
BSG 61. PROVIDED WITH JUICE AND CRACKERS
--- NOTE | 2017-03-19 06:20 | NUR ---
IV HEARD BEEPING. ENTERED ROOM TO SEE PATIENT PULLING AT TUBING. INSTRUCTED TO LEAVE IV ALONE SO MEDS MAY BE ADMINISTERED
--- NOTE | 2017-03-19 06:20 | NUR ---
DR HILTON CONTACTED AND INFORMED OF PATIENT PULLING RIGHT ARM PICC OUT. ALSO INFORMED NEW IV SITE OBTAINED AND ANTIBIOTICS CONTINUED.
[2017-03-19 06:38] LABS: ALBUMIN 1.8 gm/dl (3.1-4.5); ALKALINE PHOSPHATASE 56 U/L (45-117); BUN 18 mg/dl (7-24); CHLORIDE 103 mmol/L (98-107); CREATININE 0.94 mg/dL (0.70-1.30); POTASSIUM 4.1 mmol/L (3.5-5.1); SGOT/AST 13 IU/L (3-35); SGPT/ALT 11 U/L (12-78); SODIUM 140 mmol/L (136-145); TOTAL PROTEIN 7.3 gm/dL (6.4-8.2)
[2017-03-19 08:00] VITALS: BP 146/84
--- NOTE | 2017-03-19 08:24 | NUR ---
DR. BAJWA IN TO SEE PT.
--- NOTE | 2017-03-19 12:09 | NUR ---
PODIATRY IN TO SEE PATIENT.
[2017-03-19 13:13] VITALS: BP 126/78
[2017-03-19 16:00] VITALS: BP 145/75
[2017-03-19 16:15] VITALS: BP 138/82
[2017-03-19 20:00] VITALS: BP 114/58; BP 121/80
--- NOTE | 2017-03-19 20:00 | NUR ---
RESTING IN BED WATCHING TV. NO DISTRESS NOTED. RESPIRATIONS EASY. LUNGS DIMINISHED, CLEAR. PULSE OX 92% RA. BULKY DRESSING MAINTAINED TO RLE. CALL LIGHT WITHIN REACH. NO VOICED COMPLAINTS
--- NOTE | 2017-03-19 21:57 | NUR ---
REQUESTED AND RECEIVED NORCO PER PRN ORDER FOR COMPLAINTS OF HEADACHE RATING AN 8. CALL LIGHT WITHIN REACH. WILL MONITOR FOR EFFECTIVENESS
[2017-03-20] VITALS: BP 136/83
--- NOTE | 2017-03-20 | NUR ---
EARLIER NORCO APPEARS EFFECTIVE. SLEEPING. RESPIRATIONS EASY. VSS. CALL LIGHT WITHIN REACH
--- NOTE | 2017-03-20 06:00 | NUR ---
SLEPT THROUGHOUT NIGHT WITH NO DISTRESS NOTED. RESPIRATIONS EASY. DRESSING MAINTAINED TO RLE. CALL LIGHT WITHIN REACH. NO VOICED COMPLAINTS THIS SHIFT
[2017-03-20 06:39] LABS: BASO % 0.6 % (0.0-1.0); EOS # 0.3 10*3/uL (0.0-0.4); EOS % 4.9 % (1.0-4.0); HEMATOCRIT 26.7 % (42.0-52.0); HEMOGLOBIN 8.4 g/dl (14.0-18.0); LYMPH # 1.3 10*3/uL (1.3-4.4); LYMPH % 19.8 % (27.0-41.0); MEAN CELL VOLUME 94.7 fl (80.0-94.0); MEAN CORPUSCULAR HGB 29.8 pg (27.0-31.0); MEAN CORPUSCULAR HGB CONC 31.5 g/dl (33.0-37.0); MEAN PLATELET VOLUME 8.8 fl (9.6-12.3); MONO # 0.4 10*3/uL (0.1-1.0); MONO % 5.8 % (3.0-9.0); NEUT # 4.6 10*3/uL (2.3-7.9); NEUT % 68.3 % (47.0-73.0); PLATELET COUNT AUTOMATED 467 10*3/uL (130-400); RED BLOOD COUNT 2.82 10*6/uL (4.50-5.90); RED CELL DISTRI WIDTH 13.2 % (0-14.5); WHITE BLOOD COUNT 6.7 10*3/uL (4.8-10.8)
[2017-03-20 07:03] LABS: BUN 22 mg/dl (7-24); CHLORIDE 101 mmol/L (98-107); CREATININE 1.08 mg/dL (0.70-1.30); POTASSIUM 4.1 mmol/L (3.5-5.1); SODIUM 138 mmol/L (136-145)
--- NOTE | 2017-03-20 07:34 | NUR ---
Shift chart check completed.
[2017-03-20 08:00] VITALS: BP 125/86
[2017-03-20 12:00] VITALS: BP 108/75
[2017-03-20 16:00] VITALS: BP 132/75
[2017-03-20 20:00] VITALS: BP 127/86
--- NOTE | 2017-03-20 20:00 | NUR ---
ASSUMED CARE OF PATIENT. ASSESSMENT COMPLETE. RESTING IN BED. NO VOICED COMPLAINTS. VISITORS AT BEDSIDE. CALL LIGHT IN REACH. WILL CONTINUE TO MONITOR.
[2017-03-21] VITALS: BP 126/80
--- NOTE | 2017-03-21 02:00 | NUR ---
SLEEPING. RESP EASY AND NONLABORED ON ROOM AIR. NO DISTRESS NOTED. CALL LIGHT IN REACH. WILL CONTINUE TO MONITOR.
[2017-03-21 05:54] LABS: BUN 24 mg/dl (7-24); CHLORIDE 103 mmol/L (98-107); CREATININE 1.08 mg/dL (0.70-1.30); POTASSIUM 4.1 mmol/L (3.5-5.1); SODIUM 139 mmol/L (136-145)
[2017-03-21 05:56] LABS: VANCOMYCIN TROUGH 19.5 ug/mL (10-20)
[2017-03-21 06:09] LABS: BASO % 0.5 % (0.0-1.0); EOS # 0.4 10*3/uL (0.0-0.4); EOS % 4.5 % (1.0-4.0); HEMATOCRIT 27.4 % (42.0-52.0); HEMOGLOBIN 8.7 g/dl (14.0-18.0); LYMPH # 1.3 10*3/uL (1.3-4.4); MEAN CELL VOLUME 94.2 fl (80.0-94.0); MEAN CORPUSCULAR HGB 29.9 pg (27.0-31.0); MEAN CORPUSCULAR HGB CONC 31.8 g/dl (33.0-37.0); MEAN PLATELET VOLUME 8.7 fl (9.6-12.3); MONO # 0.4 10*3/uL (0.1-1.0); MONO % 5.2 % (3.0-9.0); NEUT # 5.9 10*3/uL (2.3-7.9); NEUT % 73.4 % (47.0-73.0); PLATELET COUNT AUTOMATED 435 10*3/uL (130-400); RED BLOOD COUNT 2.91 10*6/uL (4.50-5.90); RED CELL DISTRI WIDTH 13.4 % (0-14.5)
--- NOTE | 2017-03-21 07:50 | NUR ---
DR SANDRA UP AT THIS TIME FOR PICC LINE CONSENT.
[2017-03-21 08:00] VITALS: BP 132/84
--- NOTE | 2017-03-21 11:10 | NUR ---
PT DOWN FOR PICC LINE INSERTION.
--- NOTE | 2017-03-21 11:52 | NUR ---
PICC LINE COMPLETE. CXR CONFIRMS PROPER PLACEMENT. SPOKE WITH DR SANDRA. ORDER RECEIVED TO USE PICC LINE.
--- NOTE | 2017-03-21 11:55 | NUR ---
DR ZAMORA IN TO SEE PT AT THIS TIME. STATES TO LEAVE DRESSING INTACT. PT IS OK FOR DISCHARGE FROM PODIATRY STANDPOINT, PT CAN FOLLOW UP TUESDAY IN THEIR OFFICE. UPDATED DR SANDRA.
--- NOTE | 2017-03-21 12:19 | NUR ---
PHYSICAL THERAPY Pt off the floor this AM therapy session, went down for a picc line. WESLEY WOOD PSYCHIATRIC RN.
--- NOTE | 2017-03-21 12:39 | NUR ---
PHYSICAL THERAPY Jun seen this PM for his therapy, back from his picc line. Jun said that he was up in his bedside chair once today but would get up again. Transfer supine/sit, sitting balance CG X 1, no LOB X 6 min sitting. Sit/stand and up on wheeled walker standing balance with verbal cues for NWB right foot, then gait pivot and driver license reviewing officer front of his bedside chair for standing balance to tolerance and NWB right LE followed by up in his bedside chair, call light and phone nurse present. WESLEY WOOD MASS SPEC.
--- NOTE | 2017-03-21 13:47 | NUR ---
DR PERRY UPDATED ON CASE MANAGEMENT STATING THAT [place] MEDICAID NEEDS JUSTIFICATION TO WHY THE PT REQUIRES TEFLARO OPPOSED TO OTHER MEDS THAT CAN BE USED. STATES HE WILL SPEAK TO DR OLSON AND GET BACK TO US.
[2017-03-21 16:00] VITALS: BP 136/90
--- NOTE | 2017-03-21 16:00 | NUR ---
DR PERRY IN TO SEE PT AND UPDATE ON PLAN FOR D/C MEDS.
[2017-03-21] MEDS ORDERED: VANCO 1.251.25 GM/25 IV (16:42)
[2017-03-21 20:00] VITALS: BP 126/85
--- NOTE | 2017-03-21 20:00 | NUR ---
ASSUMED CARE OF PATIENT. ASSESSMENT COMPLETE. RESTING IN BED. DENIES FURTHER NEEDS AT THIS TIME. CALL LIGHT IN REACH. WILL CONTINUE TO MONITOR.
--- NOTE | 2017-03-22 02:00 | NUR ---
SLEEPING. RESP EASY AND NONLABORED ON ROOM AIR. NO DISTRESS NOTED. CALL LIGHT IN REACH. WILL CONTINUE TO MONITOR.
[2017-03-22 06:25] LABS: BASO # 0.1 10*3/uL (0.0-0.1); BASO % 0.8 % (0.0-1.0); EOS # 0.3 10*3/uL (0.0-0.4); EOS % 3.9 % (1.0-4.0); HEMOGLOBIN 8.8 g/dl (14.0-18.0); LYMPH # 1.4 10*3/uL (1.3-4.4); LYMPH % 17.8 % (27.0-41.0); MEAN CELL VOLUME 95.7 fl (80.0-94.0); MEAN CORPUSCULAR HGB CONC 30.3 g/dl (33.0-37.0); MEAN PLATELET VOLUME 8.6 fl (9.6-12.3); MONO # 0.4 10*3/uL (0.1-1.0); MONO % 5.3 % (3.0-9.0); NEUT # 5.5 10*3/uL (2.3-7.9); NEUT % 71.5 % (47.0-73.0); PLATELET COUNT AUTOMATED 437 10*3/uL (130-400); RED BLOOD COUNT 3.03 10*6/uL (4.50-5.90); RED CELL DISTRI WIDTH 13.8 % (0-14.5); WHITE BLOOD COUNT 7.7 10*3/uL (4.8-10.8)
[2017-03-22 06:36] LABS: ALBUMIN 2.2 gm/dl (3.1-4.5); ALKALINE PHOSPHATASE 70 U/L (45-117); BUN 24 mg/dl (7-24); CHLORIDE 105 mmol/L (98-107); CREATININE 1.02 mg/dL (0.70-1.30); POTASSIUM 4.5 mmol/L (3.5-5.1); SGOT/AST 14 IU/L (3-35); SGPT/ALT 13 U/L (12-78); SODIUM 139 mmol/L (136-145); TOTAL PROTEIN 7.2 gm/dL (6.4-8.2)
[2017-03-22 08:00] VITALS: BP 138/80
--- NOTE | 2017-03-22 08:00 | NUR ---
script for home iv antibiotics was faxed to Faviola at [facility] in [place] on Tuesday03/18/17. Faviola returned call and stated that patient's insurance would not pay for iv teflora and wanted another medication ordered. infectious disease ordered Vancomycin iv, script was faxed to Faviola, Faviola called again and stated that patient's insurance wanted jusitification for the Vancomycin, more of patient's chart was faxed to Faviola
--- NOTE | 2017-03-22 09:49 | NUR ---
PHYSICAL THERAPY Mr Davis seen this AM 1:1 for his therapy session. Pt wanted me to show him again NWB with walker. Transfer supine/sit, sitting balance CGA X 1, X 4 min sitting. Sit/stand, and standing balance with W/W MIN A X 1. Followed by gait 22' X 1, MOD MEDICINAL PLANT PICKER X 1, with W/W with cueing for gait, walker and NWB safety and did well this therapy session and wanting to quit. Pt up in his bedside chair, call light and phone no complaint. WESLEY WOOD SPACE PLANNER.
[2017-03-22 12:00] VITALS: BP 130/86
--- NOTE | 2017-03-22 14:03 | NUR ---
case management called [facility], spoke to Caroline, Caroline is still waiting on approval for iv medications from [place] Medicaid
--- NOTE | 2017-03-22 15:18 | NUR ---
case management spoke to Caroline from [facility], patient's iv medication has been approved, they will deliver the medication to patient alessandra, turnaround planner contacting [facility] to see patient in am to start iv antibiotics, Dr Olivo notified
--- NOTE | 2017-03-22 15:28 | NUR ---
Received new home health order for [facility]. Contacted facility to ensure they can be there tomorrow moring to teach/administer IV ATB for this patient. They accepted patient and will be there in the morning, faxed order and clinicals.
[2017-03-22] MEDS ORDERED: VITAMIN D31000 UNI1 PO (15:34)
[2017-03-22] MEDS ORDERED: PRINIVIL10 MG PO (15:34)
--- NOTE | 2017-03-22 15:35 | NUR ---
MEDICATED WITH PRN PO NORCO FOR RIGHT FOOT PAIN.
[2017-03-22 16:00] VITALS: BP 108/68
--- NOTE | 2017-03-22 16:06 | NUR ---
PER PODIATRY CONSULT, PATIENT MAY GO HOME TONIGHT IF ABLE TO MAKE A 1230 OFFICE APPOINTMENT TOMORROW FOR RIGHT FOOT DRESSING CHANGE. PATIENT HAS NO RIDE TO THE APPOINTMENT, SO PER PODIATRY, PATIENT MUST STAY TONIGHT AND GET DRESSING CHANGED BY SPANISH SPEAKING BABYSITTER IN THE MORNING. PER CASE MANAGEMENT, IV VANCOMYCIN INFUSIONS PER [facility] ARE SET UP TO START TOMORROW MORNING. DR. ASHLEY NOTIFIED THAT PATIENT MAY NOT BE DISCHARGED TODAY, PER PODIATRY, AND THAT [facility] WILL BE NOTIFIED OF THIS D/T A OPERATOR AND CASE MANAGEMENT NO LONGER IN OFFICE TODAY. PHONED STAFF AT [facility] TO NOTIFY THEM THAT PATIENT WILL NOT BE AT HIS HOME TOMORROW MORNING TO RECEIVE SERVICES D/T HE WILL BE INPATIENT ONE MORE NIGHT. LEFT MESSAGE FOR A OPERATOR RE: THIS, ALSO INCLINOMETER TESTER.
--- NOTE | 2017-03-22 16:31 | NUR ---
PRN PO NORCO EFFECTIVE, PER PATIENT.
[2017-03-22 20:00] VITALS: BP 117/76
--- NOTE | 2017-03-22 20:00 | NUR ---
ASSUMED CARE OF PATIENT. ASSESSMENT COMPLETE. RESTING IN BED. CALL LIGHT IN REACH. WILL CONTINUE TO MONITOR.
[2017-03-23] VITALS: BP 120/82
--- NOTE | 2017-03-23 02:00 | NUR ---
SLEEPING. RESP EASY AND NONLABORED ON ROOM AIR. NO DISTRESS NOTED. CALL LIGHT IN REACH. WILL CONTINUE TO MONITOR.
[2017-03-23 06:24] LABS: BASO # 0.1 10*3/uL (0.0-0.1); BASO % 0.6 % (0.0-1.0); EOS # 0.3 10*3/uL (0.0-0.4); EOS % 3.4 % (1.0-4.0); HEMATOCRIT 28.3 % (42.0-52.0); HEMOGLOBIN 8.6 g/dl (14.0-18.0); LYMPH # 1.4 10*3/uL (1.3-4.4); MEAN CELL VOLUME 96.3 fl (80.0-94.0); MEAN CORPUSCULAR HGB 29.3 pg (27.0-31.0); MEAN CORPUSCULAR HGB CONC 30.4 g/dl (33.0-37.0); MONO # 0.5 10*3/uL (0.1-1.0); MONO % 5.5 % (3.0-9.0); NEUT # 6.4 10*3/uL (2.3-7.9); NEUT % 74.2 % (47.0-73.0); PLATELET COUNT AUTOMATED 420 10*3/uL (130-400); RED BLOOD COUNT 2.94 10*6/uL (4.50-5.90); RED CELL DISTRI WIDTH 13.9 % (0-14.5); WHITE BLOOD COUNT 8.6 10*3/uL (4.8-10.8)
[2017-03-23 06:32] LABS: BUN 31 mg/dl (7-24); CHLORIDE 105 mmol/L (98-107); CREATININE 1.07 mg/dL (0.70-1.30); POTASSIUM 4.3 mmol/L (3.5-5.1); SODIUM 141 mmol/L (136-145)
[2017-03-23 08:15] VITALS: BP 120/68
--- NOTE | 2017-03-23 10:18 | NUR ---
PHYSICAL THERAPY Pt seen this AM and having his breakfast at this time. WESLEY WOOD ASSEMBLER RADIO AND ELECTRICAL.
--- NOTE | 2017-03-23 11:20 | NUR ---
PHYSICAL THERAPY Pt not wanting to be seen at this time due to resting and states going home later Ana Maria [id number]
[2017-03-23] MEDS ORDERED: Insulin Lispro, Reco SC (11:32)
[2017-03-23] MEDS ORDERED: CRUTCHES (11:32)
[2017-03-23] MEDS ORDERED: LEVEMIR100 UNIT/1 SC (11:32)
[2017-03-23] MEDS ORDERED: GLUCTESTSTRIP (11:37)
[2017-03-23] MEDS ORDERED: NORCO 7.5-3251 EACH PO (11:40)
[2017-03-23] MEDS ORDERED: NORCO 5/325 PO (11:40)
[2017-03-23 12:00] VITALS: BP 126/74
--- NOTE | 2017-03-23 12:24 | NUR ---
PHYSICAL THERAPY This pm stopped in to see pt and pt reports going home this afternnon declined therapy. Ana Maria [id number]
--- NOTE | 2017-03-23 13:10 | NUR ---
DR. KELLER TO THE FLOOR TO SEE PATIENT. DID NOT WISH TO UNDRESS PATIENTS RIGHT FOOT. PATIENT TO BE DISCHARGED TO DAY AND FOLLOW UP WITH DR. ZAMORA IN ONE WEEK.
--- NOTE | 2017-03-23 14:35 | NUR ---
Spoke with poidatry office regarding dressing not being changed today she stated Dr. Prescott leaves the dressing intact for [address] Cuevas thought yesterday that it was going to be removed today. Patient is okay for discharge today and follow up in the podiatry office.
--- NOTE | 2017-03-23 14:58 | NUR ---
DISCHARGE INSTRUCTIONS REVIEWED. PATIENT INSTRUCTED ON NEW INSULIN DOSES AND GIVEN PRESCRIPTIONS. FOLLOW UP INSTRUCTIONS REVIEWED.
--- NOTE | 2017-03-23 17:00 | NUR ---
PATIENTS CALLED TO SAY THE PATIENT HAD BEEN HOME FOR A COUPLE HOURS BUT THAT THEY HAD YET TO HEAR FROM [facility] ABOUT IV INFUSION TEACHING. [facility] AND THE HOME HEALTH NURSE TRIMMING CASER CALLED BACK AND TOOK THE PATIENT'S INFORMATION AND STATED SHE WOULD CALL HER TRACK LABORER SHE WAS UNAWARE OF THE CONSULT. PATIENT'S HOME NUMBER GIVEN TO HOME HEALTH NURSE AND SHE IS TO CONTACT THEM DIRECTLY.
--- NOTE | 2017-03-24 07:55 | NUR ---
PHYSICAL THERAPY CO-SIGN I approve of the Phyical Therapy notes written above. DANNIELLE DONALDSON PT
== END 2017-03-23 14:58 | disposition home health service (06) | DRG 853 ==
LOC: ED 05:52 → 5E 07:27 → EDHOLD 07:27 → 5E 08:35
PROVIDERS: Emergency Medicine Emergency Medical Services; Family Medicine; Internal Medicine; Internal Medicine Hospice and Palliative Medicine; Internal Medicine Nephrology; Podiatrist; ADMIT Internal Medicine
PROC: 0L8N0ZZ Division of Right Lower Leg Tendon, Open Approach (ICD-10-PCS; principal; 2017-03-09)
PROC: 0Y6M0Z9 Detachment at Right Foot, Partial 1st Ray, Open Approach (ICD-10-PCS; 2017-03-09)
PROC: 0Y6M0ZB Detachment at Right Foot, Partial 2nd Ray, Open Approach (ICD-10-PCS; 2017-03-09)
PROC: 0Y6M0ZC Detachment at Right Foot, Partial 3rd Ray, Open Approach (ICD-10-PCS; 2017-03-09)
PROC: 0Y6M0ZD Detachment at Right Foot, Partial 4th Ray, Open Approach (ICD-10-PCS; 2017-03-09)
PROC: 0Y6M0ZF Detachment at Right Foot, Partial 5th Ray, Open Approach (ICD-10-PCS; 2017-03-09)
PROC: 02HV33Z Insertion of Infusion Device into Superior Vena Cava, Percutaneous Approach (ICD-10-PCS; 2017-03-15)
PROC: 0QBN0ZZ Excision of Right Metatarsal, Open Approach (ICD-10-PCS; 2017-03-16)
PROC: 0QBN0ZX Excision of Right Metatarsal, Open Approach, Diagnostic (ICD-10-PCS; 2017-03-16)
PROC: 0JQQ0ZZ Repair Right Foot Subcutaneous Tissue and Fascia, Open Approach (ICD-10-PCS; 2017-03-16)
PROC: 30233N1 Transfusion of Nonautologous Red Blood Cells into Peripheral Vein, Percutaneous Approach (ICD-10-PCS; 2017-03-17)
PROC: 02HV33Z Insertion of Infusion Device into Superior Vena Cava, Percutaneous Approach (ICD-10-PCS; 2017-03-21)
DX: A41.9 Sepsis, unspecified organism (principal); N17.0 Acute kidney failure with tubular necrosis; E43 Unspecified severe protein-calorie malnutrition; E87.1 Hypo-osmolality and hyponatremia; E11.52 Type 2 diabetes mellitus with diabetic peripheral angiopathy with gangrene; E11.42 Type 2 diabetes mellitus with diabetic polyneuropathy; L03.115 Cellulitis of right lower limb; M86.9 Osteomyelitis, unspecified; L02.611 Cutaneous abscess of right foot; M86.8X7 Other osteomyelitis, ankle and foot; R65.20 Severe sepsis without septic shock; E11.69 Type 2 diabetes mellitus with other specified complication; L08.9 Local infection of the skin and subcutaneous tissue, unspecified; D64.9 Anemia, unspecified; E87.8 Other disorders of electrolyte and fluid balance, not elsewhere classified; B95.62 Methicillin resistant Staphylococcus aureus infection as the cause of diseases classified elsewhere; E78.5 Hyperlipidemia, unspecified; B96.5 Pseudomonas (aeruginosa) (mallei) (pseudomallei) as the cause of diseases classified elsewhere; E11.65 Type 2 diabetes mellitus with hyperglycemia; M60.9 Myositis, unspecified; B96.89 Other specified bacterial agents as the cause of diseases classified elsewhere; B96.1 Klebsiella pneumoniae [K. pneumoniae] as the cause of diseases classified elsewhere; L97.509 Non-pressure chronic ulcer of other part of unspecified foot with unspecified severity; E11.621 Type 2 diabetes mellitus with foot ulcer; Z91.041 Radiographic dye allergy status; Z79.899 Other long term (current) drug therapy; Z89.412 Acquired absence of left great toe; Z68.27 Body mass index [BMI] 27.0-27.9, adult

== ENCOUNTER 2019-07-04 16:35 | Inpatient (IN) | payer OTHER ==
[~2019-07-04] VITALS: Ht 193 cm; Wt 107.1 kg
[~2019-07-04 16:35] MED LIST changes: -AMARYL2 MG PO; +AMARYL4 MG PO; +CEFADROXIL500 M1 PO; +CIPRO500 MG PO; +CRUTCHES; +GLUCTESTSTRIP; +Insulin Lispro, Reco SC; +LEVEMIR100 UNIT/1 SC; +LOPID600 M1 PO; +NORCO 5/325 PO; +NORCO 7.5-3251 EACH PO; +PRINIVIL10 MG PO; +TEFLARO600 MG IV; +VANCO 1.251.25 GM/25 IV; +VITAMIN D31000 UNI1 PO
[2019-07-04 17:55] LABS: BASO % 0.2 % (0.0-1.0); EOS # 0.1 10*3/uL (0.0-0.4); EOS % 1.3 % (1.0-4.0); HEMATOCRIT 38.4 % (42.0-52.0); HEMOGLOBIN 12.1 g/dl (14.0-18.0); LYMPH # 1.5 10*3/uL (1.3-4.4); LYMPH % 16.7 % (27.0-41.0); MEAN CELL VOLUME 92.8 fl (80.0-94.0); MEAN CORPUSCULAR HGB 29.2 pg (27.0-31.0); MEAN CORPUSCULAR HGB CONC 31.5 g/dl (33.0-37.0); MEAN PLATELET VOLUME 9.3 fl (9.6-12.3); MONO # 0.4 10*3/uL (0.1-1.0); MONO % 4.7 % (3.0-9.0); NEUT # 6.6 10*3/uL (2.3-7.9); NEUT % 76.5 % (47.0-73.0); PLATELET COUNT AUTOMATED 311 10*3/uL (130-400); RED BLOOD COUNT 4.14 10*6/uL (4.50-5.90); RED CELL DISTRI WIDTH 12.2 % (0-14.5); WHITE BLOOD COUNT 8.7 10*3/uL (4.8-10.8)
[2019-07-04 18:11] LABS: ALBUMIN 2.7 gm/dl (3.1-4.5); BUN 17 mg/dl (7-24); CHLORIDE 103 mmol/L (98-107); CREATININE 1.17 mg/dL (0.70-1.30); SGOT/AST 8 IU/L (3-35); SGPT/ALT 18 U/L (12-78); SODIUM 137 mmol/L (136-145); TOTAL PROTEIN 7.4 gm/dL (6.4-8.2)
[2019-07-04 18:12] LABS: ALKALINE PHOSPHATASE 75 U/L (45-117)
--- NOTE | 2019-07-04 19:20 | NUR ---
CALLED TO ROOM PT HAS RED RAISED HIVE NOTED TO RIGHT ARM WITH ITCHING TO AREA. VANC STOPPED AT THIS TIME. PT DENIES ANY TROUBLE BREATHING. MADE AWARE. DANY JUSTICE RN.
[2019-07-04 20:30] VITALS: BP 122/80
--- NOTE | 2019-07-04 20:30 | NUR ---
A 43, admitted to 5E, under the services of MONO Durham DO with a diagnosis of DIABETIC FOOT INFECTION. Chief complaint is INFECTION TO RIGHT FOOT/WOUND. Patient arrived via stretcher from ER. Monitor applied. Initial assessment completed. Vital signs taken and recorded. MONO DURHAM DO notified of admission to the unit. Orders received. See assessment for past medical history, medications and allergies. Patient and/or family oriented to unit. [address] visitation policy reviewed. Clothing/patient valuable form completed. BERNABE VIVEROS
--- NOTE | 2019-07-04 20:30 | NUR ---
MED REC WILL NEED REVIEWED WITH DR. LIU. PATIENT IS UNSURE OF MEDS AND DOSES. PATIENT FILLS SOME MEDICATIONS AT [facility] AND HE GETS THE REST AT HIS PCP'S OFFICE.
--- NOTE | 2019-07-04 21:00 | NUR ---
DR. WINSTON NOTIFIED OF CONSULT FOR DR. LINDSAY. DR. WINSTON STATES THAT ZOSYN IS OKAY TO USE ON PATIENT. NEW ORDER FOR MRI RECEIVED.
[2019-07-05] VITALS (9 sets, daily range): BP systolic 101–130; BP diastolic 68–92
[2019-07-05] MEDS ORDERED: JANUVIA100 MG PO (00:47)
[2019-07-05] MEDS ORDERED: LISINOPRIL10 M1 PO (00:47)
[2019-07-05] MEDS ORDERED: AUGMENTIN 875875 MG PO (00:49)
--- NOTE | 2019-07-05 05:25 | NUR ---
WILLIAN PADILLA [id number] Please refer to the physician's history and physical for past medical history, comorbid conditions, and allergies. Diagnosis: DIABETIC FOOT INFECTION Rogelio Score: 19,LOW OR NO RISK WOUND DESCRIPTIONS: Wound Number: 1 Location of the wound: right plantar aspect of foot Type of wound: stage 4 Thickness: Full Size: 1.5cm x 1.0cm x 1.8cn Tunneling: this wound connects with right lateral heel Undermining: none Sinus Tract: none Presence of Exudate: Serosanguineous Amount: Moderate Color: Red, yellow Odor: None Periwound Skin Appearance: Erythema Wound edges: approximated Pain (associated with wound): none at time of assessment How does patient state this happened? pt stated this has been going on for awhile now and follows with podiatry outside of here Wound Number: 2 Location of the wound: right heel Type of wound: unstageable Thickness: Full Size: 1.5cm x 2.0cm x <0.1cm Tunneling: none Undermining: none Sinus Tract: none Presence of Exudate: Serousanguineous Amount: Light Color: Red, yellow Odor: None Periwound Skin Appearance: Erythema Wound edges: approximated Pain (associated with wound): none at time of assessment How does patient state this happened? pt stated this has been going on for awhile now and follows with podiatry outside of here Wound Number: 3 Location of the wound: right lateral heel Type of wound: stage 4 Thickness: Full Size: 6.5cm x 2.2cm x 1.5cm Tunneling: connect with wound number 1 (4.3cm at 6 o'clock) Undermining: none Sinus Tract: none Presence of Exudate: Serosanguineous Amount: Moderate Color: Red, yellow, brown Odor: None Periwound Skin Appearance: Erythema Wound edges: approximated Pain (associated with wound): none at time of assessment How does patient state this happened? pt stated this has been going on for awhile now and follows with podiatry outside of here Surface the patient is resting on: Isoflex SKIN PREVENTION RECOMMENDATION: 1. Pressure redistribution support surface as appropriate 2. Elevate heels 3. Remove boots/TEDS every shift and reapply 4. Head of bed 30 degrees as tolerated 5. Assess nutrition and hydration 6. Manage moisture 7. Avoid the use of containment devices while in bed 8. Use absorptive products on surfaces limit layers of linens on bed 9. Turn and reposition every 1-2 hours in bed and every 1 hour in chair as tolerated 10. Weight shifts every 15 minutes while up in chair 11. Offloading with pillows or device to keep heels elevated off bed 12. Monitor skin at least every shift 13. Inspect under medical devices twice a day WOUND TREATMENT RECOMMENDATIONS: Podiatry is already on consult. Patient is scheduled for surgery today await post op orders. Heel raiser pro boots to bilateral feet while in bed.
[2019-07-05 06:32] LABS: BASO % 0.7 % (0.0-1.0); EOS # 0.2 10*3/uL (0.0-0.4); HEMOGLOBIN 12.4 g/dl (14.0-18.0); LYMPH # 1.6 10*3/uL (1.3-4.4); LYMPH % 26.9 % (27.0-41.0); MEAN CELL VOLUME 93.7 fl (80.0-94.0); MEAN PLATELET VOLUME 9.3 fl (9.6-12.3); MONO # 0.3 10*3/uL (0.1-1.0); MONO % 5.3 % (3.0-9.0); NEUT # 3.9 10*3/uL (2.3-7.9); NEUT % 63.8 % (47.0-73.0); PLATELET COUNT AUTOMATED 332 10*3/uL (130-400); RED BLOOD COUNT 4.27 10*6/uL (4.50-5.90); RED CELL DISTRI WIDTH 12.3 % (0-14.5)
[2019-07-05 07:04] LABS: BUN 16 mg/dl (7-24); CHLORIDE 104 mmol/L (98-107); CHOLESTEROL 87 mg/dL (<200); CREATININE 1.05 mg/dL (0.70-1.30); FREE T4 1.02 ng/dl (0.76-1.46); HDL CHOLESTEROL 26 mg/dl (40-60); LDL CHOLESTEROL 4 mg/dL (9-159); PHOSPHOROUS 3.3 mg/dL (2.5-4.9); POTASSIUM 4.6 mmol/L (3.5-5.1); SODIUM 138 mmol/L (136-145); TRIGLYCERIDES 284 mg/dl (<150); VLDL CHOLESTEROL 57 mg/dL (6-40)
[2019-07-05 07:09] LABS: ACT PARTIAL THROMBO TIME 24.5 SECONDS (20.0-32.1); INTERNATIONAL NORM RATIO 0.9 (2.0-3.5)
--- NOTE | 2019-07-05 07:37 | NUR ---
Patient stated he will continue to follow up with podiatry upon discharge.
--- NOTE | 2019-07-05 07:45 | NUR ---
24 HR chart check completed.
--- NOTE | 2019-07-05 09:00 | NUR ---
Bait Maker in to talk to patient. Patient states lives at home with family. There are 14 steps in the home. Physician: da Pharmacy: [facility] Home health services: home Patient's level of ADLs: MINIMAL ASSIST Patient has working utilities: all working DME: crutches Follow-up physician's appointment after d/c: will be made by hospitalist nurse director upon discharge Does patient want to access PORTAL?: no Discharge plan discussed with patient, he lives at home, he uses crutches for ambulation, he has 14 steps in the home but has a stair lift, he states at this time he will return home with no home needs. MARCO A PATRICIA
[2019-07-05 09:22] LABS: VITAMIN D, 25-HYDROXY 26.6 ng/mL (30-100)
--- NOTE | 2019-07-05 10:26 | NUR ---
Nutritional Support Services Note: Instructed pt on 1800cal diabetic diet. Diet copy given to pt. Pt listened although compliance is poor. Has been instructed numerous times on the diet. Spoke with his cousin on the phone who is supportive of his care and will help him with his diet. He lives alone and eats all day snacking. Stressed importance of three meals daily and a night snack. Will continue to follow. Encouraged healthy eating. Vinita Ascencio Rdn Ld
--- NOTE | 2019-07-05 11:24 | NUR ---
Dr. Mendieta notified of wound care recommendations.
--- NOTE | 2019-07-05 14:24 | NUR ---
PHYSICAL THERAPY Screen received pt from home with foot ulcer, please consult PT if pt has a functionl decline from baseline, thank you. Pallavi Erickson PT
[2019-07-06] VITALS: BP 101/58
[2019-07-06 06:03] LABS: BUN 14 mg/dl (7-24); CHLORIDE 106 mmol/L (98-107); CREATININE 1.02 mg/dL (0.70-1.30); POTASSIUM 3.9 mmol/L (3.5-5.1); SODIUM 137 mmol/L (136-145)
[2019-07-06 06:08] LABS: BASO % 0.6 % (0.0-1.0); EOS # 0.2 10*3/uL (0.0-0.4); EOS % 2.3 % (1.0-4.0); HEMATOCRIT 38.3 % (42.0-52.0); HEMOGLOBIN 12.1 g/dl (14.0-18.0); LYMPH # 1.4 10*3/uL (1.3-4.4); LYMPH % 21.5 % (27.0-41.0); MEAN CELL VOLUME 92.7 fl (80.0-94.0); MEAN CORPUSCULAR HGB 29.3 pg (27.0-31.0); MEAN CORPUSCULAR HGB CONC 31.6 g/dl (33.0-37.0); MEAN PLATELET VOLUME 9.6 fl (9.6-12.3); MONO # 0.4 10*3/uL (0.1-1.0); MONO % 6.3 % (3.0-9.0); NEUT # 4.5 10*3/uL (2.3-7.9); PLATELET COUNT AUTOMATED 300 10*3/uL (130-400); RED BLOOD COUNT 4.13 10*6/uL (4.50-5.90); RED CELL DISTRI WIDTH 12.6 % (0-14.5); WHITE BLOOD COUNT 6.5 10*3/uL (4.8-10.8)
[2019-07-06 08:00] VITALS: BP 120/86
--- NOTE | 2019-07-06 09:00 | NUR ---
case management visits with patient, discussed with him a discharge plan including needing a wound vac and iv antibiotics, discussed with him a short term fci and educated him on the services a SNF will provide, he declined, he states he knows what services are provided but will be returning home when able, also discussed if her was able to administer to himself iv antibiotics and maintain a wound vac, he stated he has family that can assist with the iv antibiotics and he would want [facility] to see him at home, case management will follow and set up home needs
[2019-07-06 12:00] VITALS: BP 124/80
[2019-07-06 16:00] VITALS: BP 116/64
--- NOTE | 2019-07-06 18:54 | NUR ---
Pt had a total of 25 cc of bloody drainage in wound vac collection chamber for my shift 7-7 pm. Currently 100 cc total in chamber.
[2019-07-06 20:00] VITALS: BP 112/61
[2019-07-07] VITALS: BP 100/58
--- NOTE | 2019-07-07 01:53 | NUR ---
24 HOUR CHART CHECK COMPLETE.
--- NOTE | 2019-07-07 07:45 | NUR ---
24 HR chart check completed.
[2019-07-07 08:00] VITALS: BP 105/61
--- NOTE | 2019-07-07 08:00 | NUR ---
Patient resting quietly with no c/o discomfort. Respirations easy and regular. Vital signs stable. No overt distress. WIL MORA
[2019-07-07 12:00] VITALS: BP 127/85
--- NOTE | 2019-07-07 12:00 | NUR ---
Patient resting quietly with no c/o discomfort. Respirations easy and regular. Vital signs stable. No overt distress. WIL MORA
--- NOTE | 2019-07-07 13:00 | NUR ---
PHYSICAL THERAPY PT EVAL COMPLETED ON LEVEL 5: FULL EVAL TO FOLLOW. RECOMMEND PT WHILE HERE TO ADDRESS DECREASED STRENGTH AND FUNCTIONAL MOBILITY AND THUS WOULD BENEFIT FROM SKILLED PT WHILE HERE. PT EVAL IS MODERATE COMPLEXITY: [id number]. D/C RECOMMENDATIONS AT THIS TIME ARE HOME WITH HOME HEALTH PENDING HOW HE DOES WITH NWB AND GAIT TRAINING INCLUDING STAIRS. THANK YOU FOR REFERRAL FLOYD CAMARGO PT
[2019-07-07 14:09] LABS: ACID FAST SPEC PROCESSING Tissue Grinding (.)
[2019-07-07 16:00] VITALS: BP 125/64
[2019-07-07 20:00] VITALS: BP 113/66
[2019-07-08] VITALS: BP 118/70
[2019-07-08 08:00] VITALS: BP 121/70
--- NOTE | 2019-07-08 08:00 | NUR ---
PATIENT RESTING COMFORTABLY IN BED. NO SIGNS OF DISTRESS. WOUND VAC/DRESSING INTACT. PATIENT VOICES NO COMPLAINTS. BED IN LOWEST POSITION,CALL LIGHT WITHIN REACH WILL CONTINUE TO MONITOR.
[2019-07-08 12:00] VITALS: BP 110/71
--- NOTE | 2019-07-08 14:58 | NUR ---
NOTIFIED DR. MARADIAGA, DR. CAMACHO ADVANCED HIS DIET TO CLEAR LIQUIDS. PATIENT REQUESTING HIS MEDICATIONS. DR. MARADIAGA TO ORDER HOME MEDICATIONS
[2019-07-08 16:00] VITALS: BP 147/84
[2019-07-08 20:00] VITALS: BP 139/87
--- NOTE | 2019-07-08 20:15 | NUR ---
Patient resting quietly with no c/o discomfort. Respirations easy and regular. Vital signs stable. No overt distress. Wound vac intact, 160mm sanguineous drainage total. 10 mm out since the beginning of my shift. Pt denies any pain. Will monitor. ELIZABET BARILLAS
[2019-07-09] VITALS: BP 118/77
--- NOTE | 2019-07-09 07:45 | NUR ---
IN TO SEE PT. ASSESSMENT COMPLETE. PT RESTING IN BED WITH NO COMPLAINTS OF PAIN OR DISCOMFORT. RESPIRATIONS EASY AND REGULAR. WOUND VAC IN PLACE AT 200 LOW CONTINUOUS 180CC BLOODY DRAINAGE OUT SO FAR THAT HAS BEEN OUT. CALL LIGHT WITHIN REACH. WILL CONTINUE TO MONITOR.
--- NOTE | 2019-07-09 07:50 | NUR ---
Patient demographics faxed to [facility] for insurance check.
[2019-07-09 08:00] VITALS: BP 126/69
--- NOTE | 2019-07-09 08:00 | NUR ---
PATIENT VOICES NO COMPLAINTS DURING ASSESSMENT. DENIES PAIN. RESPIRATIONS EASY, NON LABORED. WOUND VAC INTACT. 200CC DRAINAGE NOTED. BED IN LOWEST POSITION, CALL LIGHT WITHIN REACH. WILL CONTINUE TO MONITOR.
--- NOTE | 2019-07-09 09:00 | NUR ---
case management visits with patient, discussed with him a short term long term due to the amount of medical care he will need to received upon discharge, he was agreeable with this as long as his insurance pays for it, planner chief will send referrals to area facilities that are in network with patient's insurance
--- NOTE | 2019-07-09 10:30 | NUR ---
Occupational therapy orders received and OT evaluation completed in full on floor five. Patient precautions include fall risk, ww use, NWB R LE, R LE wound vac, WBAT L LE, and bed/chair alarm. Per OT wale, OT recommends a SNF secondary to patient living alone and having a wound vac. Per patient, he can manage himself at home and was agreeable to HH SN, PT, and OT. [place], [id number]. Thank you for the referral. Cynthia Luo, OTR/L
--- NOTE | 2019-07-09 10:46 | NUR ---
PHYSICAL THERAPY Patient seen this am 1;1 for therapy visit and was sitting up on EOB following OT evaluation. Patient identified by name / and presented with R foot wound vac. Patient is also NWB on R LE and transfers sit to stand CGA. Patient instructed on safe SPT and completed transfer to bedside chair with use of wh walker, CGA, while demonstrating a little impulsive behaviour. Patient needed v/c to slow down during pivot phase of transfer to improve balance safety which included several "bunny hop" steps to L side / backwards. Patient good safety awareness with proper hand placement prior to sitting and was 100% compliant with NWB status. Patient instructed on LE therex open chain R LE and AROM all planes L LE x 15 reps each. Patient remained in bedside chair with feet elevated in semi reclined position with call light, tray table, telephone and body alarm. Will continue per POC as tolerated, total treatment time 16 minutes. King Guzman, WELLNESS CONSULTANT
[2019-07-09 12:00] VITALS: BP 146/96
--- NOTE | 2019-07-09 12:39 | NUR ---
PT RESTING IN CHAIR WITH NO COMPLAINTS AT THIS TIME. DENIES ANY PAIN. RESPIRATIONS EASY AND REGULAR. CALL LIGHT WITHIN REACH. BODY ALARM ON. WILL CONTINUE TO MONITOR.
--- NOTE | 2019-07-09 12:44 | NUR ---
Patient [place] PASS/RR completed and faxed to [facility] at [phone] for approval. waiting on clearance.
[2019-07-09 16:00] VITALS: BP 130/83
--- NOTE | 2019-07-09 16:57 | NUR ---
SURGERY CALLED AT THIS TIME REGARDING PICC LINE INSERTION. UNABLE TO INSERT PICC LINE TODAY.
[2019-07-09 20:00] VITALS: BP 116/80
[2019-07-10] VITALS: BP 106/88
[2019-07-10 08:00] VITALS: BP 113/67
--- NOTE | 2019-07-10 10:25 | NUR ---
OT NOTE Pt was seen this A.M. 1:1 for 15 minute OT session. Upon arrival pt was supine in bed. Pt identified by name and and had no complaints at this time. Pt presented to therapy with NWB status to E and wound vac to RLE. Pt transferred supine to sit EOB with SBA. Pt completed multiple sit to stand transfers from bed level with CGA and use of w/w for UE support. Pt required verbal prompts for slowing down due to being impulsive. Standing pivot then completed from the EOB to the recliner with CGA and use of w/w. Throughout all transfers pt was able to maintain good NWB to RLE. Challenged pt's static standing tolerance needed for increased I in self care tasks and functional transfers, pt was able to tolerate aprox 60 seconds at a time before sitting due to fatigue. Pt was left sitting upright in the recliner with call ligh tin hand, tray table in place, and body alarm activated for safety. Continue with POC as able. BRYAN Juarez
--- NOTE | 2019-07-10 11:09 | NUR ---
PHYSICAL THERAPY TREATMENT TIME: 10:10 AM - 10:22 AM 12 MINUTES TOTAL Patient presented to therapy in supine with head of bed elevated and bed alarm activated with. Patient reports has R foot ulcer on R HEEL and is NWB. Patient normally uses crutches at home. Patient says he is going to have a pick line installed today. Patient gives informed consent for treatment. Patient was identified by name and on [facility]. Patient performed supine to sitting at EOB transfer with SBA. Patient sat on EOB without assistance. Patient sit to stand from EOB with SBA. Patient transferred stand pivot transfer into bedside chair with CGA X 1 using Wh Walker. Patient sit to stand out of bedside chair with CGA X 1. Patient stood at Wh Walker for 2 minutes SBA and then had to sit back into chair with SBA. Patient sit to stand again out of bedside chair with SBA. Patient ambulated 6' x 1 with Wh Walker and CGA X 2 maintaining NWB on the R LE. Patient back stepped with Wh Walker and CGA X 2 maintaining NWB on the R LE as he backed up to bedside chair. Patient sat in bedside chair with SBA. Patient was left in bedside chair with wound vac in place, call light within reach and chair alarm activated and attached to patient. Patient was 1:1 with this BRIDGE CONTRACTOR for 12 minutes total. OTTO GALVAN BRIDGE CONTRACTOR
[2019-07-10 12:00] VITALS: BP 121/81
--- NOTE | 2019-07-10 14:09 | NUR ---
PATIENT UP FROM PICC LINE INSERTION. RESTING QUIETLY IN BED. CALL LIGHT WITHIN REACH.
[2019-07-10 16:00] VITALS: BP 130/89
--- NOTE | 2019-07-10 16:17 | NUR ---
OCCUPATIONAL THERAPY CO-SIGN I approve of the Occupational Therapy notes written above. JUAN KIRKPATRICK, OTR/L
[2019-07-10 20:00] VITALS: BP 128/84
[2019-07-11] VITALS (10 sets, daily range): BP systolic 93–144; BP diastolic 60–96
--- NOTE | 2019-07-11 08:00 | NUR ---
PT AWAKE, ALERT, & ORIENTED. LYING IN BED AT THIS TIME. NPO FOR RIGHT FOOT GRAFT SURGERY TODAY. WOUND VAC INTACT AND WORKING PROPERLY. PT DENIES ANY PAIN. PPP TO LEFT FOOT. LUNGS CLEAR T/O; ROOM AIR. ABD SOFT/NONTENDER. USES BSC PRN. CALL LIGHT WITHIN REACH.
--- NOTE | 2019-07-11 08:39 | NUR ---
[place] PASS/RR cleared. Notified [place] the PASS/RR has cleared, contact stating they are still reviewing this patients records. Attempted to contact [facility] again this morning regarding this referral and the facility stated "she won't be in for at least another hour". Faxed clinical updates, waiting for a return call from [facility] to see if they have accepted this patient and started a precert.
--- NOTE | 2019-07-11 10:16 | NUR ---
PATIENT TAKEN TO SURGERY AT THIS TIME.
--- NOTE | 2019-07-11 12:17 | NUR ---
Contacted [facility] and spoke with medicaid plan compliance director Merly. She stated another liason took the last bed at their facility and she was working on finding out when another bed would be available. She will return my call shortly.
--- NOTE | 2019-07-11 13:20 | NUR ---
OT NOTE Pt was seen this A.M. 1:1 for 18 minute OT session. Upon arrival pt was supine in bed. Pt identified by name and and had no complaints at this time. Pt presented to therapy with wound vac to RLE. Pt transferred supine to sit EOB with SBA. Pt completed multiple sit to stand transfers from bed level with CGA and use of w/w for UE support. Challenged pt's static standing tolerance needed for increased I in self care tasks and functional transfers. PT was able to tolerate aprox 4 minutes at a time before sitting due to fatigue, throughout pt maintained good NWB to RLE. Pt then completed standing pivot from the EOB to the recliner and from the recliner <> bedside commode with CGA for safety. Pt then transferred back into bed sit to supine with SBA. There he ws left with call light in hand, tray table in place, and phone in reach. Continue with POC as able. CATALINA Juarez/Earline
--- NOTE | 2019-07-11 13:40 | NUR ---
PHYSICAL THERAPY TREATEMTN TIME: 1:00 PM - 1:21 PM 21 MINUTES Patient presented to therapy in supine wit hreport of having had surgery at 11:00 am and being a little groggy still as well as no pain at this time in the R foot. Patient gives informed consent for treatment. Patient was identified by name and on wristband. Patient performed supine to sitting at EOB with SBA. Patient sat on EOB with SBA. Patient transferred sit to stand from EOB with SBA-CGA. Patient standing tolerance at Walker for 4 minutes with SBA-CGA. Patient lost balance x 2 AND CORRECTED LOB himself. Patient transferred <> bedside chair with SBA-CGA. Patient maintained NWB on R LE the entire time. Patient transferred back to supine in bed with CGA. Patient was left in supine in bed with call light within reach and head of bed elevated with tray table near patient. Patient was 1:1 with this STITCHER FEEDER for 21 minutes total. Patient has wound vac in place. OTTO GALVAN STITCHER FEEDER
--- NOTE | 2019-07-11 14:48 | NUR ---
Contacted [facility] again, they are currently full with a waiting list from their accute care side. Contacted [facility], [facility] and [facility]. They are stating patient has [place] Medicaid and must stay in [place], the insurance will not cover snf in the state of [place]. Lesa from [facility] is taking it to their corporate to see if they can take him and flip his medicaid to [place] from [place], but also stated it will not work if patient owns any property. Following.
--- NOTE | 2019-07-11 19:26 | NUR ---
Shift chart check completed.24 HR chart check completed.
--- NOTE | 2019-07-11 20:17 | NUR ---
RESTING EASILY ON ASSESSMENT. WOUND VAC INTACT RT FOOT WITH SMALL AMOUNT SEROSANG DRAINAGE. DRESSING/SPLINT INTACT TO RT FOOT. SCD INTACT TO LEFT FOOT. NO VOICED COMPLAINTS OF PAIN OR SHORTNESS OF BREATH. ROOM AIR. SEE ALL APPROPRIATE INTERVENTIONS.
--- NOTE | 2019-07-11 23:48 | NUR ---
ASSUMED CARE FOR THIS PT AT THIS TIME. PT RESTING QUIETLY IN BED. NO S/S OF DISTRESS NOTED. WOUND VAC INTACT AND FUNCTIONING AT 200MMHG LOW CONTINUOUS SUCTION. CALL LIGHT IN REACH.
[2019-07-12] VITALS: BP 119/77
[2019-07-12] MEDS ORDERED: CEFEPIME2 GM/100 M IV (05:00)
--- NOTE | 2019-07-12 07:30 | NUR ---
TOOK OVER CARE OF PT, PT RESTING IN BED. EASILY AROUSED. ALERT ORIENTED AND PLEASANT WITH STAFF. NO COMPLAINTS ARE VOICED BY PT AT THIS TIME. RESPIRATIONS EASY AND UNLABORED ON ROOM AIR. WILL CONTINUE TO MONITOR. CALL LIGHT IN REACH.
--- NOTE | 2019-07-12 07:53 | NUR ---
Referral faxed to [facility], waiting on review/acceptance.
[2019-07-12 08:00] VITALS: BP 135/94
--- NOTE | 2019-07-12 08:01 | NUR ---
WILLIAN PADILLA [id number] Please refer to the physician's history and physical for past medical history, comorbid conditions, and allergies. Diagnosis: DIABETIC FOOT INFECTION Rogelio Score: 19,LOW OR NO RISK WOUND DESCRIPTIONS: Wound Number: 1 Dressing intact to right lower extremity. No strikethrough drainage noted at time of assessment. Patient complaining of discomfort towards the back of his knee due to cast rubbing at time of assessment. Wound vac seal intact at 200mmHg low continous 50cc in canister at time of assessment. Surface the patient is resting on: Isoflex SKIN PREVENTION RECOMMENDATION: 1. Pressure redistribution support surface as appropriate 2. Elevate heels 3. Remove boots/TEDS every shift and reapply 4. Head of bed 30 degrees as tolerated 5. Assess nutrition and hydration 6. Manage moisture 7. Avoid the use of containment devices while in bed 8. Use absorptive products on surfaces limit layers of linens on bed 9. Turn and reposition every 1-2 hours in bed and every 1 hour in chair as tolerated 10. Weight shifts every 15 minutes while up in chair 11. Offloading with pillows or device to keep heels elevated off bed 12. Monitor skin at least every shift 13. Inspect under medical devices twice a day WOUND TREATMENT RECOMMENDATIONS: Patient states he will continue to follow up in the podiatry office upon discharge. Continue dressing changes per podiatry
--- NOTE | 2019-07-12 08:36 | NUR ---
[facility] stating they will review the referral, however there are forms that will need to be completed prior to accepting patient (regarding medicaid/assets). All meds are pending approval by corporate. will follow.
--- NOTE | 2019-07-12 09:00 | NUR ---
case management visits with patient, informed shoe lay out planner is working on discharge arrangements with [facility] and [facility]
--- NOTE | 2019-07-12 10:34 | NUR ---
PHYSICAL THERAPY TREATMENT TIME: 10:08 AM - 10:25 AM 17 MINUTES TOTAL Patient presented to therapy in supine with head of bed elevated, wound vac in place on R foot, and new cast on R LE that is causing irritation on the POST of the R KNEE. Patient gives informed consent for treatment. Patient was identified by name and on wristband. Patient performed supine to sitting at EOB with SBA. Patient sat on EOB with SBA. Patient sit to stand from EOB with CGA - MIN A X 1. Patient ambulated 40' x 1 with Walker maintaining NWB on the R LE THE ENTIRE GAIT DISTANCE. Patient stood at Walker with CGA while PCT Zully changed his bed linens for about 5 minutes total. Patient transferred into bedside chair with MIN A X 1 with verbal cues for putting his hands back on armrests of chair and for kicking the R LE out in front of him as he sat. Patient was left in in bedside chair with LEs elevated, call light within reach and chair alarm tested and attached to patient. Patient's wound vac line in place and SCD compression on L LE and turned on. Patient was 1:1 with this MATTRESS RENOVATOR for 17 minutes total. OTTO GALVAN MATTRESS RENOVATOR
--- NOTE | 2019-07-12 11:02 | NUR ---
OT NOTE PATIENT SEEN OT THIS DATE 13 MINUTES. PATIENT IN BED UPON ARRIVAL. PATIENT IDENTIFIED BY NAME AND DATE OF . PATIENT COMPLETED SUPINE TO SIT EOB SBA. COMPLETED SIT TO STAND FROM BED CGA. COMPLETED DYNAMIC STAND BALANCE USE FWW APPROX 4 MINUTES WITH MIN VERBAL CUES MAINTAIN R LE NWB. PATIENT COMPLETED STAND PIVOT TRANSFER CGA USE FWW BED TO BED SIDE COMMODE AND COMPLETED STAND TO SIT RECLINER CGA WITH F+ L LE NWB STATUS COMPLIANCE WITH VERBAL CUES REQUIRED. PATIENT SEATED IN RECLINER [facility] CHAIR ALARM IN PLACE AND CALL LIGHT WITHIN REACH. CONTINUE TOWARDS PLAN OF CARE. EMMA ARNOLD/Earline
[2019-07-12 12:00] VITALS: BP 114/76
--- NOTE | 2019-07-12 12:02 | NUR ---
case management contacted Dr Ingram's office regarding wound vac paper, spoke to Jorge, informed her that case management is attempting to place the patient in a short term fci but on Tuesday of this week gave the resident Dr Jauregui the wound vac paper to fill out and have one of the glass presser sign to fax to [facility] in the event that the patient was denied a SNF, per Jorge, there has not been any wound vac papers in the podiatry office for the doctors to sign, case management will follow
--- NOTE | 2019-07-12 12:44 | NUR ---
PT RESTING IN BED.NO S/S OF DISTRESS. RESPIRATIONS EASY AND UNLABORED. PT DENIES PAIN/DENIES NEEDING ANYTHING AT THIS TIME. WOUND VAC IN TACT, SETTINGS VERIFIED PER ORDERS. DRESSING C/D/I TO RIGHT LEG. WILL CONTINUE TO MONITOR. CALL LIGHT IN REACH.
[2019-07-12 16:00] VITALS: BP 111/74
[2019-07-12 16:07] LABS: ACID FAST SPEC PROCESSING Tissue Grinding (.)
[2019-07-12 16:07] LABS: ACID FAST SPEC PROCESSING Tissue Grinding (.)
--- NOTE | 2019-07-12 17:52 | NUR ---
PT GIVEN TYLENOL 650 MG PO AT THIS TIME FOR C/O PAIN TO RIGHT FOOT. WILL MONITOR FOR EFFECTIVENESS. CALL LIGHT IN REACH.
--- NOTE | 2019-07-12 18:48 | NUR ---
TYLENOL EFFECTIVE PER PT.
[2019-07-12 20:00] VITALS: BP 126/81
--- NOTE | 2019-07-12 20:00 | NUR ---
PATIENT AWAKE, LAYING IN BED. VOICES NO COMPLAINTS.RESPIRATIONS EASY,NON LABORED.WOUND VAC INTACT. BED IN LOWEST POSITION,CALL LIGHT WITHIN REACH. WILL CONTINUE TO MONITOR.
[2019-07-13] VITALS: BP 122/75
[2019-07-13 08:00] VITALS: BP 161/82
--- NOTE | 2019-07-13 08:28 | NUR ---
In to see patient to complete financial responsibility paperwork for [employer] and to retain patients signature. Paperwork completed and signed, faxed paperwork and clinical updates to [facility]. Lesa is stating she will fax to corporate office for approval.
--- NOTE | 2019-07-13 08:40 | NUR ---
Dr Jauregui visits case management office inquiring about the status of patient's acceptance to [facility], he presented wound vac application filled out but not signed by attending, another form given to him per his request to fill out and have another attending sign, new application form was given
--- NOTE | 2019-07-13 09:21 | NUR ---
AM ASSESSMENT COMPLETE AT THIS TIME. NO S/S OF DISTRESS NOTED. NO COMPLAINTS ARE VOICED. RESPIRATIONS EASY AND UNLABORED. WOUND VAC IN PLACE TO RIGHT FOOT. SCD IN PLACE TO LEFT LEG. PT SITTING UP IN CHAIR. WILL CONTINUE TO MONITOR. CALL LIGHT IN REACH.
--- NOTE | 2019-07-13 09:42 | NUR ---
OT NOTE PATIENT SEEN OT THIS DATE 13 MINUTES. PATIENT IN BED UPON ARRIVAL.COMPLETED SUPINE TO SIT EOB SBA. COMPLETED SIT TO STAND FROM BED CGA. COMPLETED FUNCTIONAL AMBULATION USE FWW CGA TO AND FROM BATHROOM. COMPLETED TOILET TRANSFER CGA USE GRAB BAR. COMPLETED GROOMING STANDING AT SINK CGA WITH MIN VERBAL CUES SAFETY PROPER STANCE.COMPLETED UB DRESSING DON GOWN SBA AND COMPLETED LB DRESSING DOFF/DON LEFT SOCK CGA. PATIENT SEATED IN RECLINER END OF SESSION WITH CALL LIGHT IN PLACE AND CHAIR ALARM INTACT. CONTNINUE TOWARDS PLAN OF CARE. EMMA ARNOLD/Earline
--- NOTE | 2019-07-13 10:00 | NUR ---
case management received signed application for wound vac, maintenance planner is working on patient going to a short term jail, case management will follow
--- NOTE | 2019-07-13 10:30 | NUR ---
PHYSICAL THERAPY TREATMENT TIME: 09:45 AM - 10:05 AM 20 MINUTES TOTAL Patient presented to therapy in supine with head of bed elevated and wound vac attached ot R FOOT. Patient gives informed consent for treatment. Patient was identified by name and on wristband. Patient performed supine <> sit EOB with SBA. Patient transferred sit to stand from EOB with CGA. Patient ambulated with Wh Walker and CGA X 1 FOR 20' X 1 with one episode of LOB to the R that required MIN A X 1 to correct to upright postion. Patient then sit on low chair with CGA. Patient sit to stand from Low chair with MIN A X 1 and verbal cues for pushing off armrests of chair with hands. Patient ambulated again 50' x 1 with Wh Walker and CGA X 1 with no LOB this ambulation. Patient was able to maintain NWB on the R LE during both gait distance with Wh Walker. Patient performed seated bilateral LE therapeutic exercises 2 x 10 reps each in all planes of movement for strengthening in order to improve patient's functional mobility. Patient was left sitting in bedside chair with LEs in low position, call light within reach and chair alarm tested and attached to patient. Patient was 1:1 with this [employer] REPA[employer]ER for 20 minutes total. OTTO GALVAN [employer] CON[employer]OR [employer]T REPAIRER
--- NOTE | 2019-07-13 11:22 | NUR ---
PT LYING IN BED. DENIES NEEDING ANYTHING AT THIS TIME, DENIES PAIN TO RIGHT FOOT/LEG. WOUND VAC IN TACT AND FUNCTIONING PER ORDERS BY PODIATRY. ALL SAFETY MEASURES ARE IN PLACE. CALL LIGHT IN REACH.
[2019-07-13 12:00] VITALS: BP 126/89
--- NOTE | 2019-07-13 12:55 | NUR ---
Patient has been accepted to [facility], wound vac obtained at facility. Patient ok to go today if medically stable for discharge.
[2019-07-13] MEDS ORDERED: Humalog SQ (12:57)
[2019-07-13] MEDS ORDERED: Lantus SC (12:57)
--- NOTE | 2019-07-13 14:04 | NUR ---
PT WOUND VAC REMOVED PER ORDERS GIVEN IN PROGRESS NOTE BY PODIATRY. WET TO DRY DRESSING APPLIED TO WOUNDS, WOUNDS WRAPPED WITH KERLEX AND TYRON WRAP. DRESSINGS ARE C/D/I AT THIS TIME. PODIATRY NOTIIFED AND STATES THAT THEY WILL BE UP TO PLACE POSTERIOR CAST ON PT FOR TRANSFER TO [facility]. PT BÁRBARA ALLEN NOTIFIED OF PT PLANS OF DISCHARGE AND TRANSFER TO SNF.
--- NOTE | 2019-07-13 14:10 | NUR ---
PT LEAVES FACILITY [facility]IA [facility] TO [facility].
--- NOTE | 2019-07-13 14:21 | NUR ---
REPORT CALLED TO NURSE MORALES AT [facility].
--- NOTE | 2019-07-13 14:22 | NUR ---
Discharge instructions reviewed with patient/family. Patient receptive and verbalizes understanding. Follow-up care arranged. Written instructions given to patient/family. CHAZ DONOHUE
--- NOTE | 2019-07-13 15:36 | NUR ---
PHYSICAL THERAPY CO-SIGN I approve of the Physical Therapy notes written above. Pallavi Erickson PT
--- NOTE | 2019-07-13 16:14 | NUR ---
OCCUPATIONAL THERAPY CO-SIGN I approve of the Occupational Therapy notes written above. GRACIELA BENJAMIN OTR/Earline
[2019-08-16 12:04] LABS: ACID FAST CULTURE Negative (.)
== END 2019-07-13 14:22 | disposition other institution (70) | DRG 463 ==
LOC: ED 16:35 → EDHOLD 19:09 → 5E 19:09
PROVIDERS: Internal Medicine; Physician Assistant; Podiatrist; Podiatrist Foot & Ankle Surgery; Student in an Organized Health Care Education/Training Program; ADMIT Internal Medicine
DX: M86.10 Other acute osteomyelitis, unspecified site (principal); E43 Unspecified severe protein-calorie malnutrition; L97.419 Non-pressure chronic ulcer of right heel and midfoot with unspecified severity; E11.69 Type 2 diabetes mellitus with other specified complication; M86.171 Other acute osteomyelitis, right ankle and foot; E11.621 Type 2 diabetes mellitus with foot ulcer; D64.9 Anemia, unspecified; G89.29 Other chronic pain; E55.9 Vitamin D deficiency, unspecified; E78.5 Hyperlipidemia, unspecified; R79.82 Elevated C-reactive protein (CRP); E11.65 Type 2 diabetes mellitus with hyperglycemia; L89.512 Pressure ulcer of right ankle, stage 2; E66.3 Overweight; E11.42 Type 2 diabetes mellitus with diabetic polyneuropathy; E11.51 Type 2 diabetes mellitus with diabetic peripheral angiopathy without gangrene; T50.995A Adverse effect of other drugs, medicaments and biological substances, initial encounter; Y92.89 Other specified places as the place of occurrence of the external cause; Z88.1 Allergy status to other antibiotic agents; Z79.4 Long term (current) use of insulin; Z91.041 Radiographic dye allergy status; Z68.29 Body mass index [BMI] 29.0-29.9, adult